=== PATIENT | female | born 1950 | race Hispanic/Latino ===

== ENCOUNTER → 2018-06-10 | Outpatient (CLI) | payer OTHER ==
[~2018-06-10] MED LIST: CLON2TAB11 PO; ESTR42.53 VG; SOLI5 PO
== END | disposition home or self-care (01) ==
LOC: RAH 14:34
PROVIDERS: ATTEND Family Medicine
DX: N28.1 Cyst of kidney, acquired (principal)
CPT/HCPCS: 76770

== ENCOUNTER → 2019-03-02 | Outpatient (CLI) | payer OTHER | END | disposition home or self-care (01) | LOC: RAH 08:13 | PROVIDERS: ATTEND Family Medicine | DX: R10.9 Unspecified abdominal pain (principal); R11.0 Nausea; Z90.49 Acquired absence of other specified parts of digestive tract | CPT/HCPCS: 76705 ==

== ENCOUNTER → 2019-05-24 | Outpatient (CLI) | payer OTHER | END | disposition home or self-care (01) | LOC: RAH 10:18 | PROVIDERS: ATTEND Family Medicine | DX: K31.84 Gastroparesis (principal) | CPT/HCPCS: 78264; A9541 ==

== ENCOUNTER 2019-12-25 20:13 | Emergency (ER) | payer OTHER ==
[2019-12-25] MEDS ORDERED: ONDANSETRON HCL 4 MG/2 ML VIAL ONE (20:53)
[2019-12-25] MEDS ORDERED: HALOPERIDOL LACTATE 5 MG/ML VIAL ONE (20:54)
[2019-12-25 20:58] LABS: BASOPHILS % (AUTO) 0.7 % (0.0-5.0); EOSINOPHILS % (AUTO) 3.2 % (0.0-8.0); HEMATOCRIT 36.9 % (36-48); LYMPHOCYTES % (AUTO) 36.5 % (21.0-51.0); MEAN CORPUSCULAR HGB CONC 33.6 g/dL (32.0-36.0); MEAN CORPUSCULAR VOLUME 92.3 fL (79-99); MONOCYTES % (AUTO) 9.6 % (3.0-13.0); NEUTROPHILS % (AUTO) 49.7 % (40.0-77.0); PLATELET COUNT (AUTO) 252 K/uL (130-400); RED CELL DISTRIBUTION WIDTH 12.7 % (11.0-15.5); WHITE BLOOD COUNT (AUTO) 6.9 K/uL (4.8-10.8)
[2019-12-25 21:02] LABS: APPEARANCE,URINE Cloudy (CLEAR); BILIRUBIN,URINE Negative (NEGATIVE); COLOR,URINE Yellow (YELLOW); GLUCOSE, URINE (UA) Negative (NEGATIVE); KETONES,URINE Negative (NEGATIVE); LEUKOCYTE ESTERASE ,URINE Large (NEGATIVE); NITRATE,URINE Negative (NEGATIVE); OCCULT BLOOD,URINE Trace (NEGATIVE); PROTEIN,URINE POS 1+ mg/dL (NEGATIVE)
[2019-12-25 21:11] LABS: CREATININE 1.1 mg/dL (0.5-1.5); POTASSIUM 3.5 mmol/L (3.5-5.1)
[2019-12-25 21:15] LABS: ALBUMIN 3.9 g/dL (3.5-5.0); BILIRUBIN,DIRECT 0.1 mg/dL (0.0-0.3); BILIRUBIN,TOTAL 0.2 mg/dL (0.2-1.0); TOTAL PROTEIN, SERUM 7.7 g/dL (6.0-8.3)
[2019-12-25 21:39] LABS: BACTERIA,URINE Few /HPF (None Seen); MUCUS,URINE Rare LPF (None Seen); SQUAMOUS EPITHELIAL CELL,UR Moderate /HPF (0-2)
== END 2019-12-25 21:59 | disposition home or self-care (01) ==
LOC: EDH 20:13
DX: N39.0 Urinary tract infection, site not specified (principal); R10.11 Right upper quadrant pain; I10 Essential (primary) hypertension; Z90.49 Acquired absence of other specified parts of digestive tract; Z90.710 Acquired absence of both cervix and uterus
CPT/HCPCS: 36415; 74176; 80048; 80076; 81001; 82550; 83690; 84484; 85025; 87088; 93005; 96374; 96375; 99285; J1630; J2405

== ENCOUNTER → 2020-07-09 | Outpatient (CLI) | payer OTHER | END | disposition home or self-care (01) | LOC: RAH 09:05 | PROVIDERS: ATTEND Family Medicine | DX: R10.11 Right upper quadrant pain (principal); Z90.49 Acquired absence of other specified parts of digestive tract | CPT/HCPCS: 76700 ==

== ENCOUNTER 2021-01-23 14:40 | Emergency (ER) | payer OTHER ==
[~2021-01-23] VITALS: Ht 157.5 cm; Wt 61.7 kg
[2021-01-23 14:46] VITALS: BP 114/63
[2021-01-23] MEDS ORDERED: HYDROCODONE/ACETAMINOPHEN 5/325 MG TAB PO ONE (15:30)
[2021-01-23] MEDS ORDERED: CYCLOBENZAPRINE HCL 10 MG TABLET PO ONE (15:30)
[2021-01-23] MEDS ORDERED: KETOROLAC 30MG VIAL (30MG/ML) IM ONE (15:30)
[2021-01-23 15:33] LABS: BASOPHILS % (AUTO) 0.4 % (0.0-5.0); EOSINOPHILS % (AUTO) 1.7 % (0.0-8.0); HEMATOCRIT 33.7 % (36-48); LYMPHOCYTES % (AUTO) 25.4 % (21.0-51.0); MEAN CORPUSCULAR HEMOGLOBIN 31.6 pg (27.0-33.0); MEAN CORPUSCULAR HGB CONC 33.2 g/dL (32.0-36.0); MEAN CORPUSCULAR VOLUME 95.2 fL (79-99); MONOCYTES % (AUTO) 8.5 % (3.0-13.0); NEUTROPHILS % (AUTO) 63.7 % (40.0-77.0); PLATELET COUNT (AUTO) 256 K/uL (130-400); RED BLOOD CELL COUNT(AUTO) 3.54 MIL/uL (4.00-5.50); RED CELL DISTRIBUTION WIDTH 13.1 % (11.0-15.5); WHITE BLOOD COUNT (AUTO) 7.2 K/uL (4.8-10.8)
[2021-01-23 15:43] LABS: POTASSIUM 3.5 mmol/L (3.5-5.1)
[2021-01-23 15:48] VITALS: BP 133/82
[2021-01-23 15:53] LABS: ALBUMIN 3.6 g/dL (3.5-5.0); BILIRUBIN,TOTAL 0.2 mg/dL (0.2-1.0); TOTAL PROTEIN, SERUM 7.4 g/dL (6.0-8.3)
[2021-01-23 16:56] VITALS: BP 128/64
[2021-01-23] MEDS ORDERED: NAPR-1180 PO (17:16)
[2021-01-23] MEDS ORDERED: CYCL10 PO (17:16)
== END 2021-01-23 17:24 | disposition home or self-care (01) ==
LOC: EDH 14:50
DX: M94.0 Chondrocostal junction syndrome [Tietze] (principal); R07.89 Other chest pain; I10 Essential (primary) hypertension; E11.9 Type 2 diabetes mellitus without complications; F41.9 Anxiety disorder, unspecified; Z90.49 Acquired absence of other specified parts of digestive tract; Z90.710 Acquired absence of both cervix and uterus; Z79.899 Other long term (current) drug therapy
CPT/HCPCS: 36415; 71045; 80053; 82550; 84484; 85025; 93005; 96372; 99285; J1885

== ENCOUNTER 2021-05-13 09:58 | Emergency (ER) | payer OTHER ==
[~2021-05-13] VITALS: Ht 157.5 cm; Wt 60.8 kg
[~2021-05-13 09:58] MED LIST changes: +CYCL10 PO; +NAPR-1180 PO
[2021-05-13 10:22] LABS: BASOPHILS % (AUTO) 0.6 % (0.0-5.0); EOSINOPHILS % (AUTO) 2.5 % (0.0-8.0); HEMATOCRIT 37.1 % (36-48); LYMPHOCYTES % (AUTO) 33.5 % (21.0-51.0); MEAN CORPUSCULAR HEMOGLOBIN 30.5 pg (27.0-33.0); MEAN CORPUSCULAR HGB CONC 32.3 g/dL (32.0-36.0); MEAN CORPUSCULAR VOLUME 94.4 fL (79-99); MONOCYTES % (AUTO) 9.1 % (3.0-13.0); NEUTROPHILS % (AUTO) 54.1 % (40.0-77.0); PLATELET COUNT (AUTO) 253 K/uL (130-400); RED BLOOD CELL COUNT(AUTO) 3.93 MIL/uL (4.00-5.50); RED CELL DISTRIBUTION WIDTH 13.2 % (11.0-15.5); WHITE BLOOD COUNT (AUTO) 4.9 K/uL (4.8-10.8)
[2021-05-13 10:24] LABS: APPEARANCE,URINE Cloudy (CLEAR); BILIRUBIN,URINE Negative (NEGATIVE); COLOR,URINE Yellow (YELLOW); GLUCOSE, URINE (UA) Negative (NEGATIVE); KETONES,URINE Trace mg/dL (NEGATIVE); LEUKOCYTE ESTERASE ,URINE Moderate (NEGATIVE); NITRATE,URINE Negative (NEGATIVE); OCCULT BLOOD,URINE Negative (NEGATIVE); PROTEIN,URINE Negative (NEGATIVE); UROBILINOGEN,URINE 0.2 mg/dL (0.2-1.0)
[2021-05-13 10:31] LABS: AMPHET/METH SCREEN,URINE NEGATIVE (NEGATIVE); BARBITURATE SCREEN, URINE NEGATIVE (NEGATIVE); BENZODIAZEPINES SCREEN,URINE NEGATIVE (NEGATIVE); CANNABINOID SCREEN,URINE NEGATIVE (NEGATIVE); COCAINE SCREEN,URINE NEGATIVE (NEGATIVE); OPIATE SCREEN,URINE NEGATIVE (NEGATIVE); PHENCYCLIDINE SCREEN,URINE NEGATIVE (NEGATIVE)
[2021-05-13 10:33] LABS: CREATININE 1.3 mg/dL (0.5-1.5)
[2021-05-13 10:37] LABS: ALBUMIN 3.9 g/dL (3.5-5.0); BILIRUBIN,TOTAL 0.5 mg/dL (0.2-1.0); TOTAL PROTEIN, SERUM 7.9 g/dL (6.0-8.3)
[2021-05-13 10:59] LABS: BACTERIA,URINE Rare /HPF (None Seen); RBC,URINE 0-1 /HPF (0-1); SQUAMOUS EPITHELIAL CELL,UR Few /HPF (0-2)
[2021-05-13] MEDS ORDERED: CEFTRIAXONE 1G VIAL IVP ONE (12:00)
[2021-05-13] MEDS ORDERED: HYDROCODONE/ACETAMINOPHEN 5/325 MG TAB PO ONE (13:00)
[2021-05-13] MEDS ORDERED: FAMO-136 PO (14:48)
[2021-05-13 15:18] VITALS: BP 120/78
== END 2021-05-13 15:19 | disposition home or self-care (01) ==
LOC: EDH 09:58
DX: K29.70 Gastritis, unspecified, without bleeding (principal); I10 Essential (primary) hypertension; Z79.1 Long term (current) use of non-steroidal anti-inflammatories (NSAID); Z90.49 Acquired absence of other specified parts of digestive tract
CPT/HCPCS: 36415; 74176; 80053; 80305; 81001; 82150; 83690; 84484; 85025; 87088; 96374; 99284; J0696

== ENCOUNTER → 2022-09-22 | Outpatient (CLI) | payer MEDICARE ==
[~2022-09-22] MED LIST changes: -CYCL10 PO; +CYCL10TA16 PO; +FAMO-136 PO
[2022-09-22 10:31] LABS: BASOPHILS % (AUTO) 0.5 % (0.0-5.0); EOSINOPHILS % (AUTO) 1.6 % (0.0-8.0); HEMATOCRIT 37.5 % (36-48); LYMPHOCYTES % (AUTO) 14.4 % (21.0-51.0); MEAN CORPUSCULAR HEMOGLOBIN 30.1 pg (27.0-33.0); MEAN CORPUSCULAR HGB CONC 32.3 g/dL (32.0-36.0); MEAN CORPUSCULAR VOLUME 93.3 fL (79-99); MONOCYTES % (AUTO) 8.1 % (3.0-13.0); PLATELET COUNT (AUTO) 242 K/uL (130-400); RED BLOOD CELL COUNT(AUTO) 4.02 MIL/uL (4.00-5.50); WHITE BLOOD COUNT (AUTO) 7.4 K/uL (4.8-10.8)
[2022-09-22 10:46] LABS: CREATININE 1.4 mg/dL (0.5-1.5); POTASSIUM 3.6 mmol/L (3.5-5.1)
== END | disposition home or self-care (01) ==
LOC: LAB 09:51
PROVIDERS: ATTEND Urology
DX: R31.29 Other microscopic hematuria (principal)
CPT/HCPCS: 36415; 80048; 85025

== ENCOUNTER → 2022-09-26 | Outpatient (CLI) | payer MEDICARE ==
[~2022-09-26] MED LIST changes: +IOHEXOL-350 50ML VIAL IV ONE
== END | disposition home or self-care (01) ==
LOC: RAH 09:29
PROVIDERS: ATTEND Urology
DX: R31.29 Other microscopic hematuria (principal)
CPT/HCPCS: 74178; Q9967

== ENCOUNTER → 2023-05-18 | Outpatient (CLI) | payer MEDICARE ==
[~2023-05-18] MED LIST changes: +CLON0.5T4 PO; -CLON2TAB11 PO; -CYCL10TA16 PO; +DULO30CA2 PO; -ESTR42.53 VG; -FAMO-136 PO; -IOHEXOL-350 50ML VIAL IV ONE; +LISI40TA9 PO; +MIRA50TA PO; -NAPR-1180 PO; +NAPR-1196 PO; +OMEP40CA21 PO; -SOLI5 PO; +VENL-63 PO
== END | disposition home or self-care (01) ==
LOC: RAH 09:19
PROVIDERS: ATTEND Internal Medicine Gastroenterology
DX: N28.1 Cyst of kidney, acquired (principal); R10.84 Generalized abdominal pain; R93.2 Abnormal findings on diagnostic imaging of liver and biliary tract
CPT/HCPCS: 76700

== ENCOUNTER → 2023-05-26 | Outpatient (CLI) | payer MEDICARE ==
[2023-05-26 15:21] LABS: CREATININE 1.5 mg/dL (0.5-1.5); THYROID STIMULATING HORMONE 1.62 uIU/mL (0.36-3.74)
== END | disposition home or self-care (01) ==
LOC: LAB 13:48
PROVIDERS: ATTEND Internal Medicine Gastroenterology
DX: R10.10 Upper abdominal pain, unspecified (principal); R63.4 Abnormal weight loss; K31.84 Gastroparesis; R93.2 Abnormal findings on diagnostic imaging of liver and biliary tract; R11.0 Nausea
CPT/HCPCS: 36415; 82565; 84443; 84520

== ENCOUNTER → 2023-07-01 | Outpatient (CLI) | payer MEDICARE ==
[2023-07-01 10:22] LABS: THYROID STIMULATING HORMONE 1.6 uIU/mL (0.36-3.74)
== END | disposition home or self-care (01) ==
LOC: LAB 08:51
PROVIDERS: ATTEND Internal Medicine Gastroenterology
DX: R63.4 Abnormal weight loss (principal); R10.10 Upper abdominal pain, unspecified; K31.84 Gastroparesis; R11.0 Nausea; R93.2 Abnormal findings on diagnostic imaging of liver and biliary tract
CPT/HCPCS: 36415; 82565; 84443; 84520

== ENCOUNTER → 2023-07-02 | Outpatient (CLI) | payer MEDICARE ==
[~2023-07-02] MED LIST changes: +IOHEXOL 350 MG/ML 100ML INFUS..BTL IV ONE
== END | disposition home or self-care (01) ==
LOC: CANPRECLI → RAH 10:14
PROVIDERS: ATTEND Internal Medicine Gastroenterology
DX: N28.1 Cyst of kidney, acquired (principal); R10.10 Upper abdominal pain, unspecified; R11.0 Nausea; R63.4 Abnormal weight loss; R93.2 Abnormal findings on diagnostic imaging of liver and biliary tract; Z90.49 Acquired absence of other specified parts of digestive tract
CPT/HCPCS: 74178; Q9967

== ENCOUNTER 2023-09-18 15:23 | Emergency (ER) | payer MEDICARE ==
[~2023-09-18] VITALS: Ht 157.5 cm; Wt 54.0 kg
[~2023-09-18 15:23] MED LIST changes: +ASPI-1197 PO; +ATOR40TA69 PO; -DULO30CA2 PO; +DULO30CA52 PO; -IOHEXOL 350 MG/ML 100ML INFUS..BTL IV ONE; -LISI40TA9 PO; +SUCR1TAB PO; +VIBE75TA PO
[2023-09-18] MEDS: HYDROCODONE/ACETAMINOPHEN 5/325 MG TAB PO ONE (18:52)
[2023-09-18] MEDS: KETOROLAC 60 MG VIAL (30MG/ML) IM ONE (18:52)
[2023-09-18 19:20] VITALS: BP 115/76; PULSE 61; RESP 16; O2SAT 100
[2023-09-18] MEDS ORDERED: LIDO1ADH71 TP (19:38)
[2023-09-18] MEDS ORDERED: IBUP-2070 PO (19:38)
[2023-09-18] MEDS ORDERED: ACET-2079 PO (19:38)
== END 2023-09-18 20:11 | disposition home or self-care (01) ==
LOC: EDH 15:23
DX: S83.92XA Sprain of unspecified site of left knee, initial encounter (principal); F32.A Depression, unspecified; I10 Essential (primary) hypertension; K21.9 Gastro-esophageal reflux disease without esophagitis; K31.84 Gastroparesis; Z59.00 Homelessness unspecified; Z59.7 Insufficient social insurance and welfare support; Z79.82 Long term (current) use of aspirin; Z79.899 Other long term (current) drug therapy; Z83.3 Family history of diabetes mellitus; Z90.49 Acquired absence of other specified parts of digestive tract; Z90.710 Acquired absence of both cervix and uterus; X58.XXXA Exposure to other specified factors, initial encounter; Y93.01 Activity, walking, marching and hiking; Y92.89 Other specified places as the place of occurrence of the external cause; Y99.8 Other external cause status
CPT/HCPCS: 99284; 29505; 73562; 96372; J1885

== ENCOUNTER 2023-11-04 13:23 | Emergency (ER) | payer OTHER ==
[~2023-11-04] VITALS: Ht 154.9 cm; Wt 53.5 kg
[~2023-11-04 13:23] MED LIST changes: +ACET-2079 PO; +IBUP-2070 PO; +LIDO1ADH71 TP
[2023-11-04 14:41] VITALS: BP 126/63; PULSE 83; RESP 16; O2SAT 99
[2023-11-04 15:28] LABS: BASOPHILS # (AUTO) 0.04 K/uL (0.00-0.20); BASOPHILS % (AUTO) 0.5 % (0.0-5.0); EOSINOPHILS % (AUTO) 2.3 % (0.0-8.0); HEMATOCRIT 36.8 % (36-48); IMMATURE GRANULOCYTE ABSOLUTE 0.02 K/uL (0-1); LYMPHOCYTES # (AUTO) 1.7 K/uL (1.0-4.8); LYMPHOCYTES % (AUTO) 19.3 % (21.0-51.0); MEAN CORPUSCULAR HEMOGLOBIN 30.4 pg (27.0-33.0); MEAN CORPUSCULAR HGB CONC 32.3 g/dL (32.0-36.0); MEAN CORPUSCULAR VOLUME 94.1 fL (79-99); MONOCYTES # (AUTO) 0.7 K/uL (0.1-1.0); MONOCYTES % (AUTO) 7.7 % (3.0-13.0); PLATELET COUNT (AUTO) 263 K/uL (130-400); RED BLOOD CELL COUNT(AUTO) 3.91 MIL/uL (4.00-5.50); RED CELL DISTRIBUTION WIDTH 14.4 % (11.0-15.5); WHITE BLOOD COUNT (AUTO) 8.5 K/uL (4.8-10.8)
[2023-11-04 15:33] LABS: APPEARANCE,URINE CLOUDY (CLEAR); BILIRUBIN,URINE NEGATIVE (NEGATIVE); COLOR,URINE LIGHT-YELLOW (YELLOW); GLUCOSE, URINE (UA) NEGATIVE (NEGATIVE); KETONES,URINE NEGATIVE (NEGATIVE); LEUKOCYTE ESTERASE ,URINE 500 Leu/uL (NEGATIVE); NITRATE,URINE NEGATIVE (NEGATIVE); OCCULT BLOOD,URINE SMALL (NEGATIVE); PH,URINE 5.5 (5.0-8.0); PROTEIN,URINE 10 mg/dL (NEGATIVE); UROBILINOGEN,URINE 0.2 mg/dL (0.2-1.0)
[2023-11-04 15:34] LABS: ADD UA MICROSCOPIC YES
[2023-11-04 15:37] LABS: MUCUS,URINE RARE LPF (None Seen); SQUAMOUS EPITHELIAL CELL,UR MOD /HPF (0-2); WBC,URINE 26-50 /HPF (0-1)
[2023-11-04 15:39] LABS: CREATININE 1.1 mg/dL (0.5-1.0); POTASSIUM 3.5 mmol/L (3.5-5.1)
[2023-11-04 15:43] LABS: ALBUMIN 3.7 g/dL (3.5-5.0); BILIRUBIN,TOTAL 0.4 mg/dL (0.2-1.0); TOTAL PROTEIN, SERUM 7.7 g/dL (6.0-8.3)
[2023-11-04] MEDS ORDERED: AMOX/CLAV 875/125MG TAB PO ONE (18:00)
[2023-11-04] MEDS ORDERED: ACETAMINOPHEN 500 MG TABLET PO ONE (18:00)
[2023-11-04] MEDS: FAMOTIDINE 20MG VIAL IV ONE (18:24)
[2023-11-04] MEDS: 0.9%NACL 1000ML 1,000 ML IV ONE (18:24)
[2023-11-04] MEDS: MORPHINE 2 MG SYG IVP ONE (18:24)
[2023-11-04] MEDS: ONDANSETRON 4MG INJ IVP ONE (18:24)
[2023-11-04] MEDS ORDERED: IOHEXOL-350 75 ML VIAL IV ONE (20:02)
[2023-11-04] MEDS ORDERED: DICY20TA2 PO (21:44)
[2023-11-04] MEDS: CEFTRIAXONE 1G VIAL IV ONE (21:53)
[2023-11-04] MEDS: KETOROLAC 15MG/ML VIAL (15MG/ML) IV ONE (21:53)
== END 2023-11-04 22:31 | disposition home or self-care (01) ==
LOC: EDH 13:23
DX: G89.29 Other chronic pain (principal); R10.31 Right lower quadrant pain; E86.0 Dehydration; F32.A Depression, unspecified; I10 Essential (primary) hypertension; K21.9 Gastro-esophageal reflux disease without esophagitis; Z79.82 Long term (current) use of aspirin; Z79.899 Other long term (current) drug therapy; Z90.49 Acquired absence of other specified parts of digestive tract; Z90.710 Acquired absence of both cervix and uterus
CPT/HCPCS: 99285; 74177; 96374; 96375; 71045; 80053; 83690; 85025; 87088; 81001; 36415; 93005; J3490; J2270; J7030; J0696; J2405; J1885; Q9967

== ENCOUNTER → 2023-11-06 | Outpatient (CLI) | payer OTHER ==
[~2023-11-06] MED LIST changes: +DICY20TA2 PO
== END | disposition home or self-care (01) ==
LOC: RAH 08:44
PROVIDERS: ATTEND Surgery
DX: K21.9 Gastro-esophageal reflux disease without esophagitis (principal); K57.10 Diverticulosis of small intestine without perforation or abscess without bleeding; R10.13 Epigastric pain
CPT/HCPCS: 74240

== ENCOUNTER → 2023-11-16 | Outpatient (CLI) | payer OTHER | END | disposition home or self-care (01) | LOC: RAH 10:27 | PROVIDERS: ATTEND Surgery | DX: K30 Functional dyspepsia (principal) | CPT/HCPCS: 78264; A9541 ==

== ENCOUNTER 2024-02-15 04:46 | Emergency (ER) | payer OTHER ==
[~2024-02-15] VITALS: Ht 157.5 cm; Wt 47.2 kg
[~2024-02-15 04:46] MED LIST changes: -ACET-2079 PO; -ASPI-1197 PO; -CLON0.5T4 PO; +DOCU100C33 PO; -DULO30CA52 PO; +FAMO20TA8 PO; -IBUP-2070 PO; -LIDO1ADH71 TP; +LISI10TA24 PO; -MIRA50TA PO; -NAPR-1196 PO; -OMEP40CA21 PO; +ONDA-243 PO; +PANT40TA54 PO; -SUCR1TAB PO; -VENL-63 PO; +ZOLP5TAB8 PO
[2024-02-15 05:20] LABS: BASOPHILS # (AUTO) 0.04 K/uL (0.00-0.20); BASOPHILS % (AUTO) 0.6 % (0.0-5.0); EOSINOPHILS # (AUTO) 0.13 K/uL (0.00-0.70); EOSINOPHILS % (AUTO) 1.9 % (0.0-8.0); HEMATOCRIT 34.7 % (36-48); IMMATURE GRANULOCYTE ABSOLUTE 0.02 K/uL (0-1); LYMPHOCYTES # (AUTO) 1.2 K/uL (1.0-4.8); LYMPHOCYTES % (AUTO) 18.4 % (21.0-51.0); MEAN CORPUSCULAR HEMOGLOBIN 30.9 pg (27.0-33.0); MEAN CORPUSCULAR HGB CONC 31.7 g/dL (32.0-36.0); MEAN CORPUSCULAR VOLUME 97.5 fL (79-99); MONOCYTES # (AUTO) 0.5 K/uL (0.1-1.0); NEUTROPHILS # (AUTO) 4.8 K/uL (1.8-7.7); NEUTROPHILS % (AUTO) 71.8 % (40.0-77.0); PLATELET COUNT (AUTO) 222 K/uL (130-400); RED BLOOD CELL COUNT(AUTO) 3.56 MIL/uL (4.00-5.50); RED CELL DISTRIBUTION WIDTH 13.3 % (11.0-15.5); WHITE BLOOD COUNT (AUTO) 6.7 K/uL (4.8-10.8)
[2024-02-15] MEDS: LACTATED RINGERS 1000ML 1,002 ML IV ONE (05:40)
[2024-02-15 05:51] LABS: ALBUMIN 3.6 g/dL (3.5-5.0); BILIRUBIN,TOTAL 0.6 mg/dL (0.2-1.0); CREATININE 1.3 mg/dL (0.5-1.0); POTASSIUM 3.5 mmol/L (3.5-5.1); TOTAL PROTEIN, SERUM 7.1 g/dL (6.0-8.3)
[2024-02-15] MEDS: MORPHINE 4 MG SYG IVP ONE (05:59)
[2024-02-15] MEDS: ONDANSETRON 4MG INJ IVP ONE (05:59)
[2024-02-15] MEDS ORDERED: IOHEXOL-350 75 ML VIAL IV ONE (06:01)
[2024-02-15 06:39] LABS: APPEARANCE,URINE CLEAR (CLEAR); BILIRUBIN,URINE NEGATIVE (NEGATIVE); COLOR,URINE LIGHT-YELLOW (YELLOW); GLUCOSE, URINE (UA) NEGATIVE (NEGATIVE); KETONES,URINE NEGATIVE (NEGATIVE); LEUKOCYTE ESTERASE ,URINE 75 Leu/uL (NEGATIVE); NITRATE,URINE NEGATIVE (NEGATIVE); OCCULT BLOOD,URINE NEGATIVE (NEGATIVE); PROTEIN,URINE NEGATIVE (NEGATIVE); UROBILINOGEN,URINE 0.2 mg/dL (0.2-1.0)
[2024-02-15 06:52] LABS: ADD UA MICROSCOPIC YES
[2024-02-15 06:56] LABS: BACTERIA,URINE RARE /HPF (None Seen); MUCUS,URINE RARE LPF (None Seen); SQUAMOUS EPITHELIAL CELL,UR MOD /HPF (0-2)
[2024-02-15] MEDS ORDERED: METR-172 PO (08:51)
[2024-02-15 09:07] VITALS: BP 124/71; PULSE 67; RESP 17; O2SAT 99
== END 2024-02-15 09:11 | disposition home or self-care (01) ==
LOC: EDH 04:46
DX: K52.9 Noninfective gastroenteritis and colitis, unspecified (principal); I10 Essential (primary) hypertension; E78.00 Pure hypercholesterolemia, unspecified; K21.9 Gastro-esophageal reflux disease without esophagitis; F32.A Depression, unspecified; F41.9 Anxiety disorder, unspecified; Z98.890 Other specified postprocedural states; Z79.899 Other long term (current) drug therapy; Z90.49 Acquired absence of other specified parts of digestive tract; Z90.710 Acquired absence of both cervix and uterus
CPT/HCPCS: 99285; 74177; 96374; 96361; 96375; 84484; 80053; 83690; 85025; 87086 ×2; 87186; 81001; 36415; J7120; J2405; J2270; Q9967

== ENCOUNTER → 2024-03-31 | Outpatient (CLI) | payer OTHER ==
[~2024-03-31] MED LIST changes: -DICY20TA2 PO; +DICY20TA3 PO; +LACT10SO95 PO; -ONDA-243 PO; +PROM25TA7 PO; +TRAM-543 PO; -VIBE75TA PO; -ZOLP5TAB8 PO
[2024-03-31 12:45] LABS: ALBUMIN 3.7 g/dL (3.5-5.0); BILIRUBIN,TOTAL 0.4 mg/dL (0.2-1.0); CREATININE 1.3 mg/dL (0.5-1.0); POTASSIUM 4.4 mmol/L (3.5-5.1)
== END | disposition home or self-care (01) ==
LOC: LAB 11:44
PROVIDERS: ATTEND Internal Medicine Gastroenterology
DX: E44.0 Moderate protein-calorie malnutrition (principal); D64.9 Anemia, unspecified
CPT/HCPCS: 36415; 80053

== ENCOUNTER 2024-04-27 03:01 | Observation (INO) | payer OTHER ==
[~2024-04-27] VITALS: Ht 157.5 cm; Wt 49.1 kg
[2024-04-27] MEDS: ondanSETRON 4MG INJ IVP ONE (03:52)
[2024-04-27] MEDS: morPHINE 4 MG SYG IVP ONE (03:52)
[2024-04-27 04:16] LABS: BASOPHILS # (AUTO) 0.05 K/uL (0.00-0.20); BASOPHILS % (AUTO) 0.7 % (0.0-5.0); EOSINOPHILS # (AUTO) 0.26 K/uL (0.00-0.70); EOSINOPHILS % (AUTO) 3.8 % (0.0-8.0); HEMATOCRIT 32.2 % (36-48); IMMATURE GRANULOCYTE ABSOLUTE 0.02 K/uL (0-1); LYMPHOCYTES % (AUTO) 15.2 % (21.0-51.0); MEAN CORPUSCULAR HEMOGLOBIN 31.8 pg (27.0-33.0); MEAN CORPUSCULAR HGB CONC 32.6 g/dL (32.0-36.0); MEAN CORPUSCULAR VOLUME 97.6 fL (79-99); MONOCYTES # (AUTO) 0.7 K/uL (0.1-1.0); MONOCYTES % (AUTO) 10.6 % (3.0-13.0); NEUTROPHILS # (AUTO) 4.7 K/uL (1.8-7.7); NEUTROPHILS % (AUTO) 69.4 % (40.0-77.0); PLATELET COUNT (AUTO) 256 K/uL (130-400); RED CELL DISTRIBUTION WIDTH 14.1 % (11.0-15.5); WHITE BLOOD COUNT (AUTO) 6.8 K/uL (4.8-10.8)
[2024-04-27] MEDS: hydroMORPHone 0.5 MG SYG (0.5MG/0.5ML) IVP ONE ×2 (04:27→05:20)
[2024-04-27 04:31] LABS: CREATININE 1.1 mg/dL (0.5-1.0)
[2024-04-27 04:35] LABS: BILIRUBIN,TOTAL 0.2 mg/dL (0.2-1.0)
[2024-04-27] MEDS: ketOROlac 15MG/ML VIAL (15MG/ML) IV ONE (05:20)
[2024-04-27] MEDS: CLINDAMYCIN IVPB 600MG/50ML 50 ML IV SCH (05:55)
[2024-04-27] MEDS ORDERED: hydrALAZine 20MG/ML VIAL IV PRN (06:00)
[2024-04-27] MEDS ORDERED: LAbetaLOL 20MG SYG IV PRN (06:00)
[2024-04-27] MEDS: LACTATED RINGERS 1000ML 1,000 ML IV SCH (08:37)
[2024-04-27] MEDS: hydroMORPHone 1 MG INJ IVP PRN (11:26)
[2024-04-27] MEDS: morPHINE 2 MG SYG IVP PRN (13:04)
[2024-04-27] MEDS ORDERED: ATOR40TA71 PO (14:04)
[2024-04-27] MEDS ORDERED: OMEP40CA21 PO (14:05)
[2024-04-27] MEDS ORDERED: GABA-1405 PO (14:05)
[2024-04-27] MEDS ORDERED: PROM50TA3 PO (14:07)
[2024-04-27] MEDS ORDERED: PROMETHAZINE HCL 25 MG TABLET PO SCH (16:30)
[2024-04-27] MEDS: atorVAStatin 40 MG TABLET PO SCH (21:26)
[2024-04-27] MEDS: PANTOPrazole 40 MG/VIAL IVP SCH (21:26)
[2024-04-27] MEDS: MUPIROCIN OINTMENT 22 GM TUBE TP SCH (21:26)
[2024-04-27] MEDS: GABAPENTIN 300 MG CAPSULE PO SCH (21:26)
[2024-04-28 01:00] VITALS: BP 131/100; PULSE 73; RESP 20; TEMP 98
[2024-04-28 04:00] VITALS: BP_SYST 102; BP_SYST 129; BP_DIAS 60; BP_DIAS 81; PULSE 67; RESP 20; TEMP 98
[2024-04-28 06:45] LABS: BASOPHILS # (AUTO) 0.05 K/uL (0.00-0.20); EOSINOPHILS % (AUTO) 4.1 % (0.0-8.0); HEMATOCRIT 32.5 % (36-48); IMMATURE GRANULOCYTE ABSOLUTE 0.01 K/uL (0-1); LYMPHOCYTES # (AUTO) 1.4 K/uL (1.0-4.8); LYMPHOCYTES % (AUTO) 29.2 % (21.0-51.0); MEAN CORPUSCULAR HEMOGLOBIN 31.1 pg (27.0-33.0); MEAN CORPUSCULAR HGB CONC 31.4 g/dL (32.0-36.0); MEAN CORPUSCULAR VOLUME 99.1 fL (79-99); MONOCYTES # (AUTO) 0.6 K/uL (0.1-1.0); MONOCYTES % (AUTO) 11.3 % (3.0-13.0); NEUTROPHILS # (AUTO) 2.6 K/uL (1.8-7.7); NEUTROPHILS % (AUTO) 54.2 % (40.0-77.0); PLATELET COUNT (AUTO) 258 K/uL (130-400); RED BLOOD CELL COUNT(AUTO) 3.28 MIL/uL (4.00-5.50); RED CELL DISTRIBUTION WIDTH 13.9 % (11.0-15.5); WHITE BLOOD COUNT (AUTO) 4.9 K/uL (4.8-10.8)
[2024-04-28 07:08] LABS: PROTHROMBIN TIME 10.8 SEC (9.6-11.6)
[2024-04-28 07:09] LABS: PARTIAL THROMBOPLASTIN TIME 27.9 SEC (26.3-35.5)
[2024-04-28 08:00] VITALS: O2SAT 91
[2024-04-28 08:21] VITALS: BP 108/64; PULSE 72; RESP 18; TEMP 99.2
[2024-04-28] MEDS ORDERED: hydroMORPHone 0.5 MG SYG (0.5MG/0.5ML) IVP PRN (09:00)
[2024-04-28 09:49] LABS: ALBUMIN 3.2 g/dL (3.5-5.0); BILIRUBIN,TOTAL 0.4 mg/dL (0.2-1.0); CREATININE 0.9 mg/dL (0.5-1.0); MAGNESIUM 1.9 mg/dL (1.80-2.40); PHOSPHORUS 4.8 mg/dL (2.5-4.9); TOTAL PROTEIN, SERUM 6.7 g/dL (6.0-8.3)
[2024-04-28 11:37] VITALS: BP 107/65; PULSE 80; RESP 18; TEMP 99.4
[2024-04-28] MEDS ORDERED: PHARMACY COMMUNICATION 1 EACH EACH MISC SCH (14:00)
[2024-04-28] MEDS ORDERED: IOHEXOL-350 75 ML VIAL IV ONE (17:59)
== END 2024-04-28 18:00 | disposition home or self-care (01) ==
LOC: EDH 03:01 → EDHIP 05:57 → INTOOBSV 05:57 → OBSVTOIN 05:57 → 3AH 04-28 00:49
PROVIDERS: ADMIT Internal Medicine; ATTEND Internal Medicine
DX: T85.848A Pain due to other internal prosthetic devices, implants and grafts, initial encounter (principal); K31.84 Gastroparesis; I12.9 Hypertensive chronic kidney disease with stage 1 through stage 4 chronic kidney disease, or unspecified chronic kidney disease; N18.30 Chronic kidney disease, stage 3 unspecified; D63.1 Anemia in chronic kidney disease; R64 Cachexia; E78.00 Pure hypercholesterolemia, unspecified; R63.6 Underweight; K29.70 Gastritis, unspecified, without bleeding; K57.30 Diverticulosis of large intestine without perforation or abscess without bleeding; F41.9 Anxiety disorder, unspecified; L80 Vitiligo; I25.10 Atherosclerotic heart disease of native coronary artery without angina pectoris; K21.9 Gastro-esophageal reflux disease without esophagitis; F32.A Depression, unspecified; Z87.11 Personal history of peptic ulcer disease; Z79.899 Other long term (current) drug therapy; Z90.49 Acquired absence of other specified parts of digestive tract; Z90.710 Acquired absence of both cervix and uterus; Z68.1 Body mass index [BMI] 19.9 or less, adult; Z93.4 Other artificial openings of gastrointestinal tract status; Y83.3 Surgical operation with formation of external stoma as the cause of abnormal reaction of the patient, or of later complication, without mention of misadventure at the time of the procedure
CPT/HCPCS: 96365; 96376 ×2; 96361; 96366 ×2; 96375; 99285; 80053 ×2; 83690 ×2; 85025 ×2; 36415 ×2; 74177; 76705; 83735; 84100; 85610; 85730; G0378 ×2; J1170 ×6; J2270 ×3; J2405; J2470; J1885; J3490 ×4; Q9967

== ENCOUNTER 2024-09-14 07:47 | Observation (INO) | payer OTHER ==
[~2024-09-14] VITALS: Ht 157.5 cm; Wt 52.3 kg
[~2024-09-14 07:47] MED LIST changes: -ATOR40TA69 PO; -DICY20TA3 PO; -DOCU100C33 PO; +GABA-1555 PO; +LACT-441 PO; -LACT10SO95 PO; -LISI10TA24 PO; +MEGE400O39 PO; -PANT40TA54 PO; -PROM25TA7 PO; -TRAM-543 PO
--- NOTE | 2024-09-14 08:12 | ERN ---
General Chief Complaint: Numbness Stated Complaint: NUMBNESS Time Seen by MD: 07:50 History of Present Illness Initial Comments 73-year-old female who presents for right-sided facial numbness and right neck pain radiating down to the right arm beginning about 24 hours ago. She reports yesterday she had significant pain coming from the right side of her neck going into her right trapezius muscle. She also has a bit of a headache. He was sudden in onset after hearing a pop. She reports that throughout the day the pain has gotten better but now she feels a numbness to the right side of her face. She also reports feeling weaker in the right arm compared to the left. No other focal neurologic deficits. She does report that she had a spinal fusion a few years ago by Dr. Waller. No vision changes. No confusion. Symptoms have been present for over 24 hours. Allergies: Coded Allergies: No Known Drug Allergies (Verified Allergy, Unknown, 07/03/16) Home Meds Active Scripts Cefdinir (Cefdinir) 300 Mg Capsule, 1 CAP PO DAILY for 5 Days, #5 CAP 0 Refills Prov:REED RAMOS MD 09/15/24 Aspirin (ASPIRIN 81MG CHEW TAB) 81 Mg Tab.chew, 81 MG PO Q24H for 30 Days, #30 TAB.CHEW 1 Refill Prov:REED RAMOS MD 09/15/24 Reported Medications Gabapentin (Gabapentin) 400 Mg Capsule, 1 CAP PO TID PRN for PAIN for 30 Days, #90 CAP 0 Refills 09/15/24 Discontinued Reported Medications Lactulose (Lactulose) 10 Gram/15 Ml Solution, 30 ML PO DAILY 06/25/24 Gabapentin (Gabapentin) 800 Mg Tablet, 1 TAB PO TID 06/25/24 Megestrol Acetate (Megestrol Acetate Susp) 400 Mg/10 Ml (40 Mg/Ml) Susp, 1.5 ML PO BID 06/25/24 Famotidine (Famotidine) 20 Mg Tablet, 20 MG PO BID, TAB 01/05/24 Past Medical History Past Medical History: High Cholesterol, Hypertension, Other Medical History Other: GASTRPORESIS Past Surgical History: Appendectomy, Hysterectomy, Other, Bariatric Surgery Surgical History Other: PEG TUBE; RT KNEE SX; RT ROTATOR CUFF; NECK SX Family History Family History: DM, Negative Social History Social History: Negative Female( History) History: Not Applicable ROS Dictation CONSTITUTIONAL: No chills, no fever, no weakness, no diaphoresis, no malaise. HEAD/FACE: No signs of trauma. EENT: No eye pain, no blurred vision, no tearing, no double vision, no ear alexsander n, no ear discharge, no nose pain, no nasal congestion, no throat pain, no throat swelling, no mouth pain. RESPIRATORY: No cough, no orthopnea, no SOB, no stridor, no wheezing. CARDIOVASCULAR: No chest pain, no edema, no palpitations, no syncope. GASTROINTESTINAL/ABDOMINAL: No abdominal pain, no constipation, no diarrhea, no nausea, no vomiting. GENITOURINARY: No abnormal discharge, no dysuria, no frequent urination, no hematuria. No complaints of pain in the genitals. MUSCULOSKELETAL: No back pain, no gout, no joint pain, no joint swelling, no muscle pain, no muscle stiffness, no neck pain. INTEGUMENTARY: No change in color, no change in hair/nails, no dryness, no lesion, no lumps, no rash. NEUROLOGICAL/PSYCH: Right-sided headache, right-sided facial numbness HEMATOLOGIC/LYMPHATIC: Not anemic, no history of blood clots, no apparent bleeding, no bruising, glands not swollen. All Systems Negative, Except as Noted. Physical Exam Physical Exam Dictation VITAL SIGNS: Reviewed. GENERAL APPEARANCE: Alert, oriented x3, no acute distress HEAD AND FACE: Non-traumatic. EYES: PERRL, pink conjunctivas, eyelid no trauma, anterior chamber clear. EARS: Pinnas intact and no signs of trauma or erythema. Ear canals clear and no discharge. TMs no erythema. NOSE: No discharge, no bleeding. OROPHARYNX: Mouth normal, teeth no caries, tongue pink. Pharynx clear, no erythema. Tonsils no exudates, no abscesses noted. Mucous membrane moist. NECK: Supple, non-tender, no thyromegaly, no masses, no JVD, no bruits. BREAST: Deferred. CHEST: No tenderness, no crepitus, no paradoxical movement, no retractions. LUNGS: Clear, well-ventilated, symmetric, no rales, no wheezing, no rhonchi, no stridor, good breath sounds bilaterally. HEART: Regular rate, regular rhythm, no murmur, no gallops. VASCULAR: No peripheral edema. ABDOMEN: Soft, positive bowel sounds, nondistended, no guarding, nontender, no rebound, no masses no hepatomegaly, no splenomegaly, no Ovalle's sign, no herni as. RECTAL: Deferred. GENITAL: Deferred. NEUROLOGICAL: Cranial nerves are intact. Pain when moving her head to the right. Tenderness to the mid cervical spine paraspinal muscles, no bony tenderness. She does have 4/5 strength to the right arm compared to the left arm. No vision changes, STEPHY, EOMI. MUSCULOSKELETAL: Neck nontender, full range of motion, back nontender, full range of motion. EXTREMITIES: Nontender, full range of motion. SKIN: Color pink, dry, no turgor, no rash, no lacerations, no abrasions, no contusions. LYMPHATICS: Deferred. Results Laboratory and Microbiology Lab and Micro Result Laboratory Tests Test 09/14/24 08:18 White Blood Count 4.9 K/uL (4.8-10.8) Red Blood Count 3.63 MIL/uL (4.00-5.50) L Hemoglobin 11.3 g/dL (12.0-16.0) L Hematocrit 34.7 % (36-48) L Mean Corpuscular Volume 95.6 fL (79-99) Mean Corpuscular Hemoglobin 31.1 pg (27.0-33.0) Mean Corpuscular Hemoglobin Concent 32.6 g/dL (32.0-36.0) Red Cell Distribution Width 13.7 % (11.0-15.5) Platelet Count 250 K/uL (130-400) Mean Platelet Volume 9.4 fL (7.5-10.5) Immature Granulocyte % (Auto) 0.4 % (0-1) Neutrophils (%) (Auto) 57.8 % (40.0-77.0) Lymphocytes (%) (Auto) 25.5 % (21.0-51.0) Monocytes (%) (Auto) 11.4 % (3.0-13.0) Eosinophils (%) (Auto) 4.1 % (0.0-8.0) Basophils (%) (Auto) 0.8 % (0.0-5.0) Neutrophils # (Auto) 2.8 K/uL (1.8-7.7) Lymphocytes # (Auto) 1.3 K/uL (1.0-4.8) Monocytes # (Auto) 0.6 K/uL (0.1-1.0) Eosinophils # (Auto) 0.20 K/uL (0.00-0.70) Basophils # (Auto) 0.04 K/uL (0.00-0.20) Absolute Immature Granulocyte (auto 0.02 K/uL (0-1) Nucleated Red Blood Cells 0.0 % (0.0-0.19) Erythrocyte Sedimentation Rate 13 MM/HR (0-30) Prothrombin Time 10.6 SEC (9.6-11.6) Prothromb Time International Ratio 0.94 (0.85-1.15) Activated Partial Thromboplast Time 26.4 SEC (26.3-35.5) Sodium Level 140 mmol/L (136-145) Potassium Level 3.7 mmol/L (3.5-5.1) Chloride Level 106 mmol/L (101-111) Carbon Dioxide Level 27 mmol/L (21-32) Blood Urea Nitrogen 16 mg/dL (7-18) Creatinine 1.1 mg/dL (0.5-1.0) H Glomerular Filtration Rate Calc 53 mL/min (>90) Random Glucose 80 mg/dL (70-105) Hemoglobin A1c 5.9 % (4.0-6.0) Estimated Average Glucose (eAG) 123 mg/dL (70-126) Total Calcium 8.4 mg/dL (8.5-10.1) L Magnesium Level 2.00 mg/dL (1.80-2.40) Total Bilirubin 0.4 mg/dL (0.2-1.0) Direct Bilirubin 0.1 mg/dL (0.0-0.3) Aspartate Amino Transf (AST/SGOT) 24 U/L (10-37) Alanine Aminotransferase (ALT/SGPT) 18 U/L (12-78) Alkaline Phosphatase 72 U/L (50-136) Total Creatine Kinase 61 U/L (21-232) # Troponin I High Sensitivity < 4.0 ng/L (4-50) L C-Reactive Protein, Quantitative < 0.50 mg/L (0.5-3.0) L Total Protein 7.0 g/dL (6.0-8.3) Albumin 3.2 g/dL (3.5-5.0) L Triglycerides Level 93 mg/dL (30-200) Cholesterol Level 145 mg/dL (<200) # LDL Cholesterol 94 mg/dL (0-99) HDL Cholesterol 48 mg/dL (35-85) Procalcitonin < 0.05 ng/mL (0.05-0.5) L Thyroid Stimulating Hormone (TSH) 1.57 uIU/mL (0.36-3.74) # MDM CC: Neck pain and facial numbness Historian: Patient Comorbidities: Gastroparesis with a history of GJ tube placement, cervical spine surgery C4 the C6 by Dr. waller about 15 years ago. Limitations by social determinants of health: None Differential diagnosis: Stroke, cervical spine abnormality, other Symptom onset 5:00 a.m. on 09/13/2024, not a candidate for TNK. CT head (independently interpreted by me): No acute bleed Vital signs: Stable Labs (independently ordered and interpreted by me): Normal UA, normal CBC, chemistry panel is unremarkable. Troponin normal. Liver function normal. I suspect that the patient's complaint is likely cervical radiculopathy, it appears to be coming from the neck. That said she does not neurologic complaints, such tele neurology was consulted. He recommends admission for stroke workup. He says that if we get an MRI of the brain he also recommends giving an MRI of the cervical spine. If the MRI of the brain is unremarkable with a in his likely related to the spine in the patient can follow up with Neurosurgery as needed. Patient agrees with the plan for admission. Consultation: Hospitalist ED Course Orders Procedure Category Date Status Time Ct Head/Brain W/O CT 09/14/24 Resulted Contrast 08:06 Ct Cervical Spine W/O CT 09/14/24 Resulted Contrast 08:06 Cardiac Panel LAB 09/14/24 Complete 08:06 Cbc With Differential LAB 09/14/24 Complete 08:06 Basic Metabolic Panel LAB 09/14/24 Complete 08:06 Prothrombin Time With LAB 09/14/24 Complete INR 08:06 Partial LAB 09/14/24 Complete Thromboplastin Time 08:06 12 Lead Ekg Tracing- EKG 09/14/24 Resulted Technical 08:06 Ketorolac PHA 09/14/24 Complete Tromethamine 15mg/Ml 09:00 Morphine 4mg Syg PHA 09/14/24 Complete (Morphine 4mg Syg) 09:00 Vital Signs Date Time Temp Pulse Resp B/P (MAP) Pulse Ox O2 Delivery O2 Flow Rate FiO2 09/14/24 08:41 99.0 72 16 127/81 100 Room Air* 0 21 09/14/24 07:49 99.3 97 20 131/75 99 Room Air DX & DISP Disposition: Inpatient Departure Impression: Primary Impression: Numbness Additional Impression: Stroke-like symptoms Condition: Stable Scripts Cefdinir (Cefdinir) 300 Mg Capsule 1 CAP PO DAILY for 5 Days, #5 CAP 0 Refills Prov: REED RAMOS MD 09/15/24 Aspirin (ASPIRIN 81MG CHEW TAB) 81 Mg Tab.chew 81 MG PO Q24H for 30 Days, #30 TAB.CHEW 1 Refill Prov: REED RAMOS MD 09/15/24 Referrals: NORBERT MOREIRA DO (PCP) ESTHER GUERRERO DO Sep 14, 2024 08:11
[2024-09-14 08:35] LABS: BASOPHILS # (AUTO) 0.04 K/uL (0.00-0.20); BASOPHILS % (AUTO) 0.8 % (0.0-5.0); EOSINOPHILS % (AUTO) 4.1 % (0.0-8.0); HEMATOCRIT 34.7 % (36-48); IMMATURE GRANULOCYTE ABSOLUTE 0.02 K/uL (0-1); LYMPHOCYTES # (AUTO) 1.3 K/uL (1.0-4.8); LYMPHOCYTES % (AUTO) 25.5 % (21.0-51.0); MEAN CORPUSCULAR HEMOGLOBIN 31.1 pg (27.0-33.0); MEAN CORPUSCULAR HGB CONC 32.6 g/dL (32.0-36.0); MEAN CORPUSCULAR VOLUME 95.6 fL (79-99); MONOCYTES # (AUTO) 0.6 K/uL (0.1-1.0); MONOCYTES % (AUTO) 11.4 % (3.0-13.0); NEUTROPHILS # (AUTO) 2.8 K/uL (1.8-7.7); NEUTROPHILS % (AUTO) 57.8 % (40.0-77.0); PLATELET COUNT (AUTO) 250 K/uL (130-400); RED BLOOD CELL COUNT(AUTO) 3.63 MIL/uL (4.00-5.50); RED CELL DISTRIBUTION WIDTH 13.7 % (11.0-15.5); WHITE BLOOD COUNT (AUTO) 4.9 K/uL (4.8-10.8)
[2024-09-14 08:45] LABS: INR 0.94 (0.85-1.15); PROTHROMBIN TIME 10.6 SEC (9.6-11.6)
[2024-09-14 08:46] LABS: PARTIAL THROMBOPLASTIN TIME 26.4 SEC (26.3-35.5)
[2024-09-14 08:47] LABS: CARBON DIOXIDE 27 mmol/L (21-32); CHLORIDE 106 mmol/L (101-111); CREATININE 1.1 mg/dL (0.5-1.0); GLOMERULAR FILTR. RATE CALC 53 mL/min (>90); GLUCOSE,RANDOM 80 mg/dL (70-105); POTASSIUM 3.7 mmol/L (3.5-5.1); SODIUM SERUM 140 mmol/L (136-145); UREA NITROGEN, BLOOD 16 mg/dL (7-18)
[2024-09-14 08:53] LABS: CREATINE KINASE, TOTAL 61 U/L (21-232)
[2024-09-14] MEDS: morPHINE 4 MG SYG IVP ONE (09:00)
--- NOTE | 2024-09-14 09:13 | HMCIMG ---
CT HEAD/BRAIN W/O CONTRAST HISTORY: Right facial numbness COMPARISON: None TECHNIQUE: Multiple sequential axial images of the head were obtained from the base of the skull through vertex. Patient was not given contrast through intravenous route. FINDINGS: The ventricles and extraventricular CSF spaces are dilated consistent with cerebral atrophy. Nonspecific white matter changes seen. There is right basal ganglia lacunar infarct. There is no midline shift, mass effect or herniation. No acute intracranial bleed is seen. Visualized portion of the paranasal sinuses are grossly within normal limits. IMPRESSION: 1. No acute intracranial bleed is seen. 2. Atrophy with white matter changes. Right basal ganglia lacunar infarct. CT was performed with one or more following dose reduction techniques: automated exposure control, adjustment of the mA and kv according to patient's size, or use of a iterative reconstruction technique.
--- NOTE | 2024-09-14 09:14 | HMCIMG ---
CT CERVICAL SPINE W/O CONTRAST HISTORY: Right facial numbness COMPARISON: None TECHNIQUE: Multiple sequential axial images of the cervical spine were obtained including post processing sagittal and coronal reconstruction images. Patient was not given contrast through intravenous route. FINDINGS: There is reversal of normal lordotic lumbar curvature which may be related to muscle spasm or positioning. Orthopedic fixation plates and screws are seen traversing the C4, C5 and C6 levels. Central canal narrowing is seen is levels. There is straightening of normal lordotic cervical curvature which may be related to muscle spasm or positioning. There is no loss of vertebral height. Evaluation for disc and cord pathology is limited with CT study. No evidence of fracture or dislocation is seen. IMPRESSION: 1. No fracture is seen. Postop changes limiting evaluation. Degenerative changes with cervical spine spondylosis with central canal narrowing. CT was performed with one or more following dose reduction techniques: automated exposure control, adjustment of the mA and kv according to patient's size, or use of a iterative reconstruction technique.
[2024-09-14] MEDS: ketOROlac 15MG/ML VIAL (15MG/ML) IV ONE (09:15)
--- NOTE | 2024-09-14 09:26 | EKG ---
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
--- NOTE | 2024-09-14 09:27 | NUR ---
PER DR. GUERRERO TO CONSULT TELE NEURO FOR EVALUATION
--- NOTE | 2024-09-14 09:40 | CONS ---
CONSULTATION NOTE DATE OF CONSULTATION: 09/14/24 HISTORY OF PRESENT ILLNESS: [place] [facility] Note # Demographics Consult Type: General Neurology Patient Location: Emergency Room First Name: JOHNSON Yan Last Name: JACOB Date of : 1950 Age: 73 Gender: Female Facility: [facility] Time of Initial Page (Central Time): 09/14/2024 09:29 Time of Return Call (Central Time): 09/14/2024 09:29 # HPI History: Patient reported that yesterday morning around 5am having right neck pain behind ear to shoulder, along with right facial numbness. Last Known Normal: 09/12/24 evening per patient Duration: - constant - days Possible Thrombolytic candidate: - not on warfarin or NOACs - no intracranial hemorrhage history - no stroke in last 3 months # Scores Time of exam and NIHSS (Central Time): 09/14/2024 09:31 Level of Consciousness 1a: [0] = Alert; keenly responsive LOC Questions 1b: [0] = Answers both questions correctly LOC Commands 1c: [0] = Performs both tasks correctly Best Gaze 2: [0] = Normal Visual 3: [0] = No visual loss Facial Palsy 4: [0] = Normal symmetrical movements Motor Arm Left 5a: [0] = No drift Motor Arm Right 5b: [0] = No drift Motor Leg Left 6a: [1] = Drift Motor Leg Right 6b: [0] = No drift Limb Ataxia 7: [0] = Absent Sensory 8: [1] = [id number] sensory loss Best Language 9: [0] = No aphasia Dysarthria 10: [0] = Normal Extinction and Inattention 11: [0] = No abnormality NIHSS Total: 2 # Exam SBP: 127 DBP: 81 Mental Status: - awake - alert and oriented x 3 - follows commands Sensory: - decreased sensation right face Additional Neurologic Exam: Evaluation limited due to observational assessment. In-person exam may be helpful for more subtle signs that cannot be detected via telemedicine. # PMH-FH-SH Social History: non-smoker Medications: - No antithrombotics or anticoagulants reported # Data Head CT: - no bleed - preliminarily reviewed by me, please refer to radiology read for official reading - per radiologist read # Assessment Impression: - Transient Ischemic Attack - Ischemic Stroke (Acute) - Stroke Mimic # Plan Thrombolytic/Intervention: NOT IV Thrombolysis or IA Intervention candidate Thrombolytic Exclusion (< 3 hour window): - time of onset unclear Thrombolytic Exclusion: > 4.5 hours Intraarterial Exclusion: - clinical exam not consistent with presence of large vessel occlusion (LVO), can reconsider if LVO found on vascular imaging Blood Pressure Management: Avoid hypotension to maintain cerebral perfusion pressure (i.e., consider maintaining head of bed flat as tolerated pending CTA head results) Target Blood Pressure: SBP < 220 Labs: - CBC - hemoglobin A1c - lipid panel - ESR - comprehensive metabolic panel - troponin - TSH - urine drug screen Further toxic/ metabolic/ infectious etiologies evaluation & management as per referring service Imaging: (urgency: STAT): - CT Angiogram Head and CT Angiogram Neck AND call back with results if abnormal Imaging: (urgency: routine): - MRI Brain with AND without contrast - MRI C spine If no medical contraindication Diagnostic Test: - echo without bubble study Therapy/Evaluation: - NPO until swallow evaluation - PT/OT evaluation - speech/swallow consultation Medication: - aspirin 81 mg daily - start statin with goal of LDL < 70 Other: - telemetry monitoring - permissive hypertension - will need event monitor or loop recorder as outpatient if atrial fibrillation not found as inpatient - callback neurology if brain imaging reveals moderate to large cerebellar infarct - neurology referral as outpatient Continued medical evaluation & management as per referring service - If patient has any neurological deterioration please place Follow-up Phone Call Consult (indicating urgency of request in Notes & with STAT head CT results) for on-call teleprovider callback & further discussion - Discussed with referring ER Physician Dr. Lord Additional Recommendations: Thank you for allowing us to participate in your patient's care. # Logistics Attestation of consult completion: The patient is located at: [facility]. Facility staff participated in the visit. I performed this telemedicine visit from my offsite office utilizing interactive 2 way audio and visual telecommunication technology. Consent: Verbal consent was obtained from the patient and/or family for this encounter. Total time spent in telemedicine encounter: I spent 30 minutes reviewing clinical data and/or imaging, obtaining history, examining the patient, communicating with the onsite care team, and in preparation of this report. # Demographics First Name: JOHNSON Yuriy Last Name: JACOB Facility: [facility] ALLERGIES: Coded Allergies: No Known Drug Allergies (Verified Allergy, Unknown, 07/03/16) HOME MEDS: Reported Medications Lactulose (Lactulose) 10 Gram/15 Ml Solution, 30 ML PO DAILY 06/25/24 Gabapentin (Gabapentin) 800 Mg Tablet, 1 TAB PO TID 06/25/24 Megestrol Acetate (Megestrol Acetate Susp) 400 Mg/10 Ml (40 Mg/Ml) Susp, 1.5 ML PO BID 06/25/24 Famotidine (Famotidine) 20 Mg Tablet, 20 MG PO BID, TAB 01/05/24 VITAL SIGNS Vital Signs Date Time Temp Pulse Resp B/P (MAP) Pulse Ox O2 Delivery O2 Flow Rate FiO2 09/14/24 08:41 99.0 72 16 127/81 100 Room Air* 0 21 09/14/24 07:49 99.3 97 20 131/75 99 Room Air LABORATORY RESULTS Laboratory Tests 09/14/24 08:18: White Blood Count 4.9, Red Blood Count 3.63, Hemoglobin 11.3, Hematocrit 34.7, Mean Corpuscular Volume 95.6, Mean Corpuscular Hemoglobin 31.1, Mean Corpuscular Hemoglobin Concent 32.6, Red Cell Distribution Width 13.7, Platelet Count 250, Mean Platelet Volume 9.4, Immature Granulocyte % (Auto) 0.4, Neutrophils (%) (Auto) 57.8, Lymphocytes (%) (Auto) 25.5, Monocytes (%) (Auto) 11.4, Eosinophils (%) (Auto) 4.1, Basophils (%) (Auto) 0.8, Neutrophils # (Auto) 2.8, Lymphocytes # (Auto) 1.3, Monocytes # (Auto) 0.6, Eosinophils # (Auto) 0.20, Basophils # (Auto) 0.04, Absolute Immature Granulocyte (auto 0.02, Nucleated Red Blood Cells 0.0, Prothrombin Time 10.6, Prothromb Time International Ratio 0.94, Activated Partial Thromboplast Time 26.4, Sodium Level 140, Potassium Level 3.7, Chloride Level 106, Carbon Dioxide Level 27, Blood Urea Nitrogen 16, Creatinine 1.1, Glomerular Filtration Rate Calc 53, Random Glucose 80, Total Calcium 8.4, Total Creatine Kinase 61, Troponin I High Sensitivity < 4.0 OSKAR HUTSON MD Sep 14, 2024 09:40
[2024-09-14] MEDS ORDERED: ondanSETRON 4MG INJ IVP PRN (11:00)
[2024-09-14] MEDS: PANTOPrazole 40 MG/VIAL IVP SCH (11:24)
[2024-09-14] MEDS: 0.9%NACL 1000ML 1,000 ML IV SCH (11:25)
[2024-09-14] MEDS: ASPIRIN 81MG CHEW TAB PO SCH (11:25)
[2024-09-14] MEDS: THIAMINE HCL 100 MG/ML 2ML VIAL IVP SCH (11:25)
[2024-09-14] MEDS ORDERED: hydrALAZine 20MG/ML VIAL IV PRN (11:30)
[2024-09-14 11:39] LABS: ALANINE AMINOTRANSFERASE 18 U/L (12-78); ALBUMIN 3.2 g/dL (3.5-5.0); ASPARTATE AMINOTRANSFERASE 24 U/L (10-37); BILIRUBIN,DIRECT 0.1 mg/dL (0.0-0.3); BILIRUBIN,TOTAL 0.4 mg/dL (0.2-1.0); CHOLESTEROL 145 mg/dL (<200); HDL CHOLESTEROL 48 mg/dL (35-85); HEMOGLOBIN A1C 5.9 % (4.0-6.0); LDL DIRECT 94 mg/dL (0-99); THYROID STIMULATING HORMONE 1.57 uIU/mL (0.36-3.74); TRIGLYCERIDES 93 mg/dL (30-200)
[2024-09-14 11:48] LABS: APPEARANCE,URINE CLEAR (CLEAR); BILIRUBIN,URINE NEGATIVE (NEGATIVE); COLOR,URINE LIGHT-YELLOW (YELLOW); GLUCOSE, URINE (UA) NEGATIVE (NEGATIVE); KETONES,URINE NEGATIVE (NEGATIVE); LEUKOCYTE ESTERASE ,URINE 25 Leu/uL (NEGATIVE); NITRATE,URINE NEGATIVE (NEGATIVE); OCCULT BLOOD,URINE NEGATIVE (NEGATIVE); PH,URINE 6.5 (5.0-8.0); PROTEIN,URINE NEGATIVE (NEGATIVE); UROBILINOGEN,URINE 0.2 mg/dL (0.2-1.0)
[2024-09-14 11:56] LABS: AMPHET/METH SCREEN,URINE NEGATIVE (NEGATIVE); BARBITURATE SCREEN, URINE NEGATIVE (NEGATIVE); BENZODIAZEPINES SCREEN,URINE NEGATIVE (NEGATIVE); CANNABINOID SCREEN,URINE NEGATIVE (NEGATIVE); COCAINE SCREEN,URINE NEGATIVE (NEGATIVE); OPIATE SCREEN,URINE NEGATIVE (NEGATIVE); PHENCYCLIDINE SCREEN,URINE NEGATIVE (NEGATIVE)
[2024-09-14 12:03] LABS: ADD UA MICROSCOPIC YES
[2024-09-14 12:06] LABS: BACTERIA,URINE RARE /HPF (None Seen); RBC,URINE 0-1 /HPF (0-1); SQUAMOUS EPITHELIAL CELL,UR MOD /HPF (0-2)
[2024-09-14] MEDS: morPHINE 2 MG SYG IVP PRN (12:06)
[2024-09-14] MEDS ORDERED: IOHEXOL-350 75 ML VIAL IV ONE (12:52)
[2024-09-14] MEDS: cefTRIAXone 1G VIAL IVPB SCH (14:53)
--- NOTE | 2024-09-14 16:25 | HP ---
[facility] HISTORY AND PHYSICAL Date of Service: Sep 14, 2024 Time of Service: 16:15 HISTORY OF PRESENT ILLNESS: Date of service: 09/14/2024, patient was seen in ER [place] 73-year-old female with underlying history of gastroparesis, with prior history of gastrojejunostomy tube placement who presented to the ER for further evaluation of sided facial numbness and right-sided neck pain radiating to the right arm which started close to 5:00 a.m. on 09/13/2024. Symptoms have been persistent and nonresolving prompting patient to come to the ER for further evaluation. Patient does have history of cervical spine surgery involving C4-C6 by Dr. Waller about 15-20 years ago. Denies any significant weakness of the right side of the face or the right upper extremity. She denies any previous history of stroke. Denies any previous history of seizures. Patient does have underlying history of gastroparesis and previously has undergone hiatal hernia repair with mesh reinforcement and partial gastrectomy on 01/[address] Yin followed by gastrojejunostomy tube placement by Dr. Hawkins on 03/2024.. Patient with regards to nutrition states that she gets 60% of nutrition through tube feeds and 40% by oral intake. On presentation to the hospital, patient was noted to be afebrile with T-max of 99.3 F, heart rate of 97, blood pressure 131/75. Labs on presentation was unremarkable. Patient was evaluated by tele Neurology with recommendations for patient to be admitted and patient to undergo further evaluation for acute CVA. Patient did have CT head without contrast which showed findings of right basal ganglia lacunar infarct of unknown chronicity. Patient will be admitted and consultation with Neurology will be requested. REVIEW OF SYSTEMS CONSTITUTIONAL: Denies fevers, chills, or night sweats. No unintentional weight loss reported. NEUROLOGICAL: Right-sided facial numbness and right upper extremity arm pain ENT: No hearing loss, otalgia, otorrhea, rhinitis, rhinorrhea, hoarseness, or sore throat. CARDIOVASCULAR: Denies any exertional angina, dyspnea on exertion, orthopnea, paroxysmal nocturnal dyspnea, palpitations, life-threatening arrhythmias, claudication. PULMONARY: Denies any shortness of breath, cough, phlegm/sputum, hemoptysis, pleuritic chest pain. SLEEP: Denies morning headaches, daytime somnolence or napping. Denies difficulty falling asleep, staying asleep, waking from sleep. Denies knowledge of snoring. GASTROINTESTINAL: Denies any type of dysphagia to either liquids or solids. Denies nausea, vomiting, pyrosis, early satiety, abdominal pain, diarrhea, constipation, or changes in stool consistency or caliber. Denies coffee-ground emesis, hematemesis, hematochezia, or melanotic stools. GENITOURINARY: Denies frequency, urgency, nocturia, hematuria or incontinence (Storage/Irritative symptoms.) Low urinary stream, straining to void, urinary intermittency or hesitancy, splitting of the voiding stream, terminal dribbling. ENDOCRINOLOGIC: Denies polyuria, polydipsia, polyphagia or heat/cold intolerances. HEMATOLOGIC: Denies thrombophilia/previous clots, or coagulopathy/bleeding disorders. ONCOLOGIC: Denies personal history of malignancy. DERMATOLOGIC: Denies rashes or pruritus. PSYCHIATRIC: Denies any suicidal or homicidal ideation. Denies hallucinations. PAST MEDICAL HISTORY: Gastroparesis, previous history of hypertension and hyperlipidemia PAST SURGICAL HISTORY: Cervical spine surgery by Dr. waller about 15-20 years involving C4-C6 with cervical spine fusion, history of right rotator cuff surgery, history of right knee surgery, hysterectomy, hiatal hernia repair with partial gastrectomy by Dr. Yin in 01/2024, history of gastrojejunostomy tube placement by Dr. Hawkins on 03/2024 PAST SOCIAL HISTORY: Patient denies active smoking or alcohol consumption FAMILY HISTORY: Denies pertinent family history Allergies: Patient denies known drug allergies Home medications: Patient reports being on outpatient home medication with gabapentin Coded Allergies: No Known Drug Allergies (Verified Allergy, Unknown, 07/03/16) PHYSICAL EXAM GENERAL APPEARANCE: The patient is awake, alert, and oriented, in no acute cardiopulmonary distress. NEUROLOGICAL: Cranial nerves II-XII grossly intact. Motor is 5/5 in left upper and left lower extremity, she has 4+/5 strength of the right upper extremity HEENT: Face is symmetric. Pupils are equal and reactive. Extraocular movements are intact. NECK: Supple. No JVD. No thyromegaly. No submental, submandibular, pre- /postauricular, occipital or supraclavicular lymphadenopathy. CHEST: Normal chest expansion. No Telemetry. LUNGS: Absence of any rales, rhonchi or any wheezing. CARDIOVASCULAR: Regular. S1 and S2 normal. No appreciable rubs, murmurs or gallops. ABDOMEN: Soft, nontender, and nondistended. There is no rebound, voluntary guarding, or rigidity. : Deferred. No Crowley. EXTREMITIES: Non-edematous and not cyanotic. No clubbing. Good capillary refill. SKIN: No skin breakdown. Vital Sign (Last 24 Hours) 09/14/24 08:41 Temp 99.0 Pulse 72 Resp 16 B/P (MAP) 127/81 Pulse Ox 100 O2 Delivery Room Air* O2 Flow Rate 0 FiO2 21 LABS: Laboratory: Test 09/14/24 11:33 09/14/24 08:18 Range/Units Urine Color LIGHT-YELLOW YELLOW Urine Appearance CLEAR CLEAR Urine pH 6.5 5.0-8.0 Urine Specific [place] 1.007 1.001-1.031 Urine Protein NEGATIVE NEGATIVE mg/dL Urine Glucose (UA) NEGATIVE NEGATIVE mg/dL Urine Ketones NEGATIVE NEGATIVE mg/dL Urine Occult Blood NEGATIVE NEGATIVE Urine Nitrate NEGATIVE NEGATIVE Urine Bilirubin NEGATIVE NEGATIVE mg/dL Urine Urobilinogen 0.2 0.2-1.0 mg/dL Urine Leukocyte Esterase 25 H NEGATIVE [place]/uL Urine RBC 0-1 0-1 /HPF Urine WBC 2-5 H 0-1 /HPF Urine Squamous Epithelial Cells MOD 0-2 /HPF Urine Bacteria RARE None Seen /HPF Urine Opiates Screen NEGATIVE NEGATIVE Urine Barbiturates Screen NEGATIVE NEGATIVE Urine Phencyclidine Screen NEGATIVE NEGATIVE Urine Amphetamines Screen NEGATIVE NEGATIVE Urine Benzodiazepines Screen NEGATIVE NEGATIVE Urine Cocaine Screen NEGATIVE NEGATIVE Urine Marijuana (THC) Screen NEGATIVE NEGATIVE White Blood Count 4.9 4.8-10.8 K/uL Red Blood Count 3.63 L 4.00-5.50 MIL/uL Hemoglobin 11.3 L 12.0-16.0 g/dL Hematocrit 34.7 L 36-48 % Mean Corpuscular Volume 95.6 79-99 fL Mean Corpuscular Hemoglobin 31.1 27.0-33.0 pg Mean Corpuscular Hemoglobin Concent 32.6 32.0-36.0 g/dL Red Cell Distribution Width 13.7 11.0-15.5 % Platelet Count 250 130-400 K/uL Mean Platelet Volume 9.4 7.5-10.5 fL Immature Granulocyte % (Auto) 0.4 0-1 % Neutrophils (%) (Auto) 57.8 40.0-77.0 % Lymphocytes (%) (Auto) 25.5 21.0-51.0 % Monocytes (%) (Auto) 11.4 3.0-13.0 % Eosinophils (%) (Auto) 4.1 0.0-8.0 % Basophils (%) (Auto) 0.8 0.0-5.0 % Neutrophils # (Auto) 2.8 1.8-7.7 K/uL Lymphocytes # (Auto) 1.3 1.0-4.8 K/uL Monocytes # (Auto) 0.6 0.1-1.0 K/uL Eosinophils # (Auto) 0.20 0.00-0.70 K/uL Basophils # (Auto) 0.04 0.00-0.20 K/uL Absolute Immature Granulocyte (auto 0.02 0-1 K/uL Nucleated Red Blood Cells 0.0 0.0-0.19 % Erythrocyte Sedimentation Rate 13 0-30 MM/HR Prothrombin Time 10.6 9.6-11.6 SEC Prothromb Time International Ratio 0.94 0.85-1.15 Activated Partial Thromboplast Time 26.4 26.3-35.5 SEC Sodium Level 140 136-145 mmol/L Potassium Level 3.7 3.5-5.1 mmol/L Chloride Level 106 101-111 mmol/L Carbon Dioxide Level 27 21-32 mmol/L Blood Urea Nitrogen 16 7-18 mg/dL Creatinine 1.1 H 0.5-1.0 mg/dL Glomerular Filtration Rate Calc 53 >90 mL/min Random Glucose 80 70-105 mg/dL Hemoglobin A1c 5.9 4.0-6.0 % Estimated Average Glucose (eAG) 123 70-126 mg/dL Total Calcium 8.4 L 8.5-10.1 mg/dL Magnesium Level 2.00 1.80-2.40 mg/dL Total Bilirubin 0.4 0.2-1.0 mg/dL Direct Bilirubin 0.1 0.0-0.3 mg/dL Aspartate Amino Transf (AST/SGOT) 24 10-37 U/L Alanine Aminotransferase (ALT/SGPT) 18 12-78 U/L Alkaline Phosphatase 72 50-136 U/L Total Creatine Kinase 61 # 21-232 U/L Troponin I High Sensitivity < 4.0 L 4-50 ng/L C-Reactive Protein, Quantitative < 0.50 L 0.5-3.0 mg/L Total Protein 7.0 6.0-8.3 g/dL Albumin 3.2 L 3.5-5.0 g/dL Triglycerides Level 93 30-200 mg/dL Cholesterol Level 145 # <200 mg/dL LDL Cholesterol 94 0-99 mg/dL HDL Cholesterol 48 35-85 mg/dL Procalcitonin < 0.05 L 0.05-0.5 ng/mL Thyroid Stimulating Hormone (TSH) 1.57 # 0.36-3.74 uIU/mL Current Medications Medications (Trade) Dose Ordered Sig/Shon Route PRN Reason Start Time Stop Time Status Last Admin Dose Admin Acetaminophen (TYLenol 325MG TAB) 650 mg Q6H PRN PO MILD PAIN (1-3) 09/14/24 11:00 10/14/24 10:59 Aspirin (Aspirin 81mg Chew Tab) 81 mg Q24H PO 09/14/24 11:00 10/14/24 10:59 09/14/24 11:25 81 MG Ceftriaxone Sodium (ROCEphine 1G INJ) 1 gm Q12H IVPB 09/14/24 14:30 09/24/24 14:29 09/14/24 15:13 1 GM Gabapentin (NEURontin 100 mg CAP) 400 mg TID PO 09/14/24 16:00 10/14/24 15:59 Hydralazine HCl (APRESOLine 20MG INJ) 10 mg Q6H PRN IV ADMINISTER FOR SBP > 170 09/14/24 11:30 10/14/24 11:29 Morphine Sulfate (morPHINE 2MG SYG) 2 mg Q6H PRN IVP SEVERE PAIN (7-10) 09/14/24 11:00 09/21/24 10:59 09/14/24 12:06 2 MG Ondansetron HCl (zoFRAN 4MG INJ) 4 mg Q6H PRN IVP NAUSEA/VOMITING 09/14/24 11:00 10/14/24 10:59 Pantoprazole Sodium (PROTonix 40MG INJ) 40 mg Q24H IVP 09/14/24 11:00 10/14/24 10:59 09/14/24 11:24 40 MG Sodium Chloride 1,000 ml @ 75 mls/hr [id number] IV 09/14/24 11:00 10/14/24 10:59 09/14/24 11:25 75 MLS/HR Thiamine HCl (Vitamin B-1) 100 mg Q24H IVP 09/14/24 11:00 10/14/24 10:59 09/14/24 11:25 100 MG DIAGNOSTICS / RADIOLOGY: SERVICE 5 REASON: R face numbness, neck pain > 24 hours ORDERING PHYSICIAN: ESTHER GUERRERO DO PROCEDURE: HEAD WO - CT HEAD/BRAIN W/O CONTRAST CT HEAD/BRAIN W/O CONTRAST HISTORY: Right facial numbness COMPARISON: None TECHNIQUE: Multiple sequential axial images of the head were obtained from the base of the skull through vertex. Patient was not given contrast through intravenous route. FINDINGS: The ventricles and extraventricular CSF spaces are dilated consistent with cerebral atrophy. Nonspecific white matter changes seen. There is right basal ganglia lacunar infarct. There is no midline shift, mass effect or herniation. No acute intracranial bleed is seen. Visualized portion of the paranasal sinuses are grossly within normal limits. IMPRESSION: 1. No acute intracranial bleed is seen. 2. Atrophy with white matter changes. Right basal ganglia lacunar infarct. CT was performed with one or more following dose reduction techniques: automated exposure control, adjustment of the mA and kv according to patient's size, or use of a iterative reconstruction technique. DICTATED BY: LANDON MCQUEEN MD DATE: 09/14/24902 ELECTRONICALLY SIGNED BY: LANDON MCQUEEN MD DATE: 09/14/24912 ASSESSMENT: Nonresolving right-sided facial numbness, POA Right-sided neck pain with pain radiating to the right arm, POA Rule out acute CVA versus cervical radiculopathy, POA Evidence of right basal ganglia lacunar infarct, unknown chronicity, noted on CT head from 09/14/2024, POA Mild urinary tract infection, POA History of gastroparesis with prior history of hiatal hernia repair with partial gastrectomy with gastrojejunostomy tube placement, POA History of cervical spine fusion involving C4-C6, POA PLAN: Patient will be admitted to medical-surgical floor under telemetry monitoring CT head without contrast showed findings of right basal ganglia lacunar stroke, we will obtain MRI brain with and without contrast to confirm if there is an actual stroke present, as well as MRI cervical spine per recommendations by tele neurology, discussed patient's case with Dr. Morillo, current symptoms are not correlating with findings of right basal ganglia lacunar stroke which usually should not cause pain symptoms will be on the contralateral side We will follow up MRI cervical spine to assess for significant spondyloarthropathy or foraminal stenosis, we will assess if patient has radicular pain as well Patient to continue with home dose of gabapentin We will obtain CT angio head and neck and rule out any significant carotid artery stenosis Consultation with speech will be requested Patient will be started on IV Rocephin, reports that she was recently diagnosed with UTI, continues to have urinary frequency, we will obtain urine culture We will start patient on IV hydration with NS at 75 mL/hour We will start daily thiamine supplementation All labs will be repeated in the morning We will obtain physical therapy evaluation in the morning Date of service: 09/14/2024 Plan of care was discussed with patient at bedside, Angel King MD Advanced Care Planning: Which of the following were discussed: Hospice care: Yes __ No _X_ Therapeutic options: Yes _X_ No __ Advance directives: Yes _X_ No __ Other discussions: Discussed with who?: Patient Voluntary nature of this service was explained to the patient? Yes _x_ No __ Amount of time spent: 20 minutes ANGEL KING MD Sep 14, 2024 16:25
--- NOTE | 2024-09-14 16:31 | HMCIMG ---
MR BRAIN WWO CON HISTORY: Right facial numbness COMPARISON: 03/03/2024 TECHNIQUE: MRI of the brain was performed utilizing multiple pulse sequences in axial, coronal and sagittal planes. Patient was given 10 cc of Clariscan through intravenous route. FINDINGS: There are motion artifacts degrading the image quality The ventricles and extraventricular CSF spaces are dilated consistent with cerebral atrophy. Nonspecific white matter changes are seen. There is no midline shift, mass effect or herniation. No subacute hemorrhage is seen. No MR evidence of acute infarct is seen in the diffusion weighted images. Cerebellar tonsils are in normal position. No evidence of mucoperiosteal thickening is seen of the visualized paranasal sinuses. No MR evidence of mass lesion or abnormal enhancement is seen. IMPRESSION: 1. No MR evidence of acute infarct is seen in the diffusion weighted images. Atrophy with white matter changes.
--- NOTE | 2024-09-14 16:36 | HMCIMG ---
MR SPINAL CANAL, CERV WO CON HISTORY: No additional history given. COMPARISON: None TECHNIQUE: MRI of the cervical spine was performed utilizing multiple pulse sequences in axial, coronal and sagittal plane. Patient was not given contrast through intravenous route. FINDINGS: No abnormal signal intensity is seen of the visualized bony structure. No loss of vertebral height is seen. Orthopedic fixation plates and screws are seen traversing the C4-C6 levels with paramagnetic susceptibility artifacts limiting evaluation. There is reversal of normal lordotic cervical curvature which may be related to muscle spasm or positioning. Degenerative disc signals are present at all cervical spine levels. Cerebellar tonsils are in normal position. The cervical cord is of normal signal intensity without cord compression or impingement. At the C3-4 level, there is spondylotic disc causing anterior CSF space effacement with bilateral lateral recess stenosis and bilateral neural foraminal stenosis. The central canal measures approximately 7.1 mm in its anterior posterior dimension. At the C4-5 level, there is spondylotic disc causing anterior CSF space effacement with bilateral lateral recess stenosis and bilateral neural foraminal stenosis. The central canal measures approximately 7.7 mm in its anterior posterior dimension. At the C5-6 level, there is spondylotic disc causing anterior CSF space effacement with bilateral lateral recess stenosis and bilateral neural foraminal stenosis. The central canal measures approximately 7.4 mm in its anterior posterior dimension. At the C6-7 level, there is spondylotic disc causing anterior CSF space effacement with bilateral lateral recess stenosis and bilateral neural foraminal stenosis. The central canal measures approximately 6.7 mm in its anterior posterior dimension. IMPRESSION: 1. 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 Postop changes are seen limiting evaluation.
--- NOTE | 2024-09-14 16:39 | HMCIMG ---
CT ANGIO HEAD AND NECK HISTORY: Right basal ganglia lacunar infarct COMPARISON: None TECHNIQUE: CT angiography of the head was performed. The study was performed using angiographic technique with maximum intensity projection reconstruction images. Patient was given 75 cc of Omnipaque through intravenous route. FINDINGS: The ventricles and extraventricular CSF spaces are nondilated for patient's age. There is no midline shift, mass effect or herniation. No acute intracranial bleed is seen. Visualized portion of the paranasal sinuses are grossly within normal limits. No abnormal contrast enhancement is seen. No CT evidence of cerebral aneurysm or abnormal arteriovenous communication is seen. Diffuse atherosclerosis changes are present. Vertebrobasilar arterial system is grossly within normal limits. IMPRESSION: CTA Head 1. Atherosclerotic disease. Otherwise unremarkable CTA of the brain. TECHNIQUE: CT angiography of the neck was performed. The study was performed using angiographic technique with maximum intensity projection reconstruction images. FINDINGS: There are degenerative changes of the cervical spine. Parapharyngeal fat planes are preserved bilaterally. The airway is patent. Normal enhancement of the thyroid gland is noted. Visualized portion of the lung apices are unremarkable. The common, internal and external carotid arteries are visualized. No hemodynamically significant lesion is seen of either extracranial carotid artery system. Both vertebral arteries are seen with antegrade flow. IMPRESSION: CTA Neck 1. Atherosclerotic disease. No hemodynamically significant lesion is seen of either extracranial carotid artery system. CT was performed with one or more following dose reduction techniques: automated exposure control, adjustment of the mA and kv according to patient's size, or use of a iterative reconstruction technique.
[2024-09-14] MEDS ORDERED: GADOTERATE MEGLUMINE 5 MMOL/10 ML VIAL IV ONE (16:53)
[2024-09-14] MEDS: GABApentin 100 MG CAPSULE PO SCH (17:07)
--- NOTE | 2024-09-14 19:10 | NUR ---
spoke to dr. manuel for new consult and said "ok" to see patient patient resting in bed, near nurses station
--- NOTE | 2024-09-14 19:49 | NUR ---
TOOK OVER PATIENT AT THIS TIME
[2024-09-14] MEDS: acetaMINOPHEN 325 MG TAB PO PRN (21:15)
[2024-09-15 02:02] VITALS: O2SAT 98
[2024-09-15 02:21] VITALS: BP 106/59; PULSE 66; RESP 18; TEMP 98.5
[2024-09-15] MEDS ORDERED: GABA-534 PO (02:54)
[2024-09-15 04:00] VITALS: BP 120/68; PULSE 66; RESP 18; TEMP 98.2
[2024-09-15 07:13] LABS: BASOPHILS # (AUTO) 0.03 K/uL (0.00-0.20); BASOPHILS % (AUTO) 0.6 % (0.0-5.0); EOSINOPHILS # (AUTO) 0.21 K/uL (0.00-0.70); EOSINOPHILS % (AUTO) 4.4 % (0.0-8.0); HEMATOCRIT 33.6 % (36-48); IMMATURE GRANULOCYTE ABSOLUTE 0.01 K/uL (0-1); LYMPHOCYTES # (AUTO) 1.5 K/uL (1.0-4.8); LYMPHOCYTES % (AUTO) 31.6 % (21.0-51.0); MEAN CORPUSCULAR HEMOGLOBIN 30.9 pg (27.0-33.0); MEAN CORPUSCULAR HGB CONC 32.4 g/dL (32.0-36.0); MEAN CORPUSCULAR VOLUME 95.2 fL (79-99); MONOCYTES # (AUTO) 0.5 K/uL (0.1-1.0); MONOCYTES % (AUTO) 10.5 % (3.0-13.0); NEUTROPHILS # (AUTO) 2.5 K/uL (1.8-7.7); NEUTROPHILS % (AUTO) 52.7 % (40.0-77.0); NUCLEATED RED BLOOD CELLS 0.4 % (0.0-0.19); PLATELET COUNT (AUTO) 246 K/uL (130-400); RED BLOOD CELL COUNT(AUTO) 3.53 MIL/uL (4.00-5.50); RED CELL DISTRIBUTION WIDTH 13.6 % (11.0-15.5); WHITE BLOOD COUNT (AUTO) 4.8 K/uL (4.8-10.8)
[2024-09-15 07:39] LABS: BILIRUBIN,TOTAL 0.4 mg/dL (0.2-1.0); TOTAL PROTEIN, SERUM 6.4 g/dL (6.0-8.3)
[2024-09-15 08:00] VITALS: BP 115/76; PULSE 75; RESP 18; TEMP 98.8; O2SAT 98
[2024-09-15 12:00] VITALS: BP 110/72; PULSE 67; RESP 18; TEMP 98.4
[2024-09-15] MEDS ORDERED: ASPI-1005 PO (12:04)
[2024-09-15] MEDS ORDERED: CEFD300C3 PO (12:08)
--- NOTE | 2024-09-15 12:08 | DS ---
Discharge Summary Hospital Course Summary: 73-year-old female with underlying history of gastroparesis, with prior history of gastrojejunostomy tube placement who presented to the ER for further evaluation of sided facial numbness and right-sided neck pain radiating to the right arm. Patient does have history of cervical spine surgery involving C4-C6 by Dr. Mayfield about 15-20 years ago. Patient does have underlying history of gastroparesis and previously has undergone hiatal hernia repair with mesh reinforcement and partial gastrectomy on 01/[address] Yin followed by gastrojejunostomy tube placement by Dr. Hawkins on 03/2024.. Patient with regards to nutrition states that she gets 60% of nutrition through tube feeds and 40% by oral intake. On presentation to the hospital, patient was noted to be afebrile with T-max of 99.3 F, heart rate of 97, blood pressure 131/75. Labs on presentation was unremarkable. Patient was evaluated by tele Neurology with recommendations for patient to be admitted and patient to undergo further evaluation for acute CVA. Patient did have CT head without contrast which showed findings of right basal ganglia lacunar infarct of unknown chronicity. Brain MRI was done, no evidence of acute infarct. Atrophy with white matter changes. Cervical spine CT and MRI done, showing degenerative joint disease with cervical spine spondylosis with central cannula narrowing. Today the patient is hemodynamically stable, alert oriented x3, we will like to be discharged home. Denies dizziness, no blurry vision, no chest pain, no shortness a breath, no nausea, no vomiting, no abdominal pain, no diarrhea, no constipation, no melena, no hematochezia, no hematemesis, no hematuria, no dysuria. Toolman(s): Tele neurology. Assessment/Plan: FINAL DIAGNOSIS Nonresolving right-sided facial numbness, POA Right-sided neck pain with pain radiating to the right arm, POA Rule out acute CVA versus cervical radiculopathy, POA Evidence of right basal ganglia lacunar infarct, unknown chronicity, noted on CT head from 09/14/2024, POA Mild urinary tract infection, POA History of gastroparesis with prior history of hiatal hernia repair with partial gastrectomy with gastrojejunostomy tube placement, POA History of cervical spine fusion involving C4-C6, POA Discharge Instructions: PATIENT TO BE DISCHARGED HOME TODAY, TO FOLLOW UP WITH HER PRIMARY CARE PHYSICIAN AN OUTPATIENT. PATIENT TO RETURN TO HOSPITAL IF HER CONDITION CHANGES. PATIENT AGREED WITH PLAN AND UNDERSTOOD THE INFORMATION PROVIDED. Home Medications: Reported Medications Gabapentin (Gabapentin) 400 Mg Capsule, 1 CAP PO TID PRN for PAIN for 30 Days, #90 CAP 0 Refills 09/15/24 Discontinued Reported Medications Lactulose (Lactulose) 10 Gram/15 Ml Solution, 30 ML PO DAILY 06/25/24 Gabapentin (Gabapentin) 800 Mg Tablet, 1 TAB PO TID 06/25/24 Megestrol Acetate (Megestrol Acetate Susp) 400 Mg/10 Ml (40 Mg/Ml) Susp, 1.5 ML PO BID 06/25/24 Famotidine (Famotidine) 20 Mg Tablet, 20 MG PO BID, TAB 01/05/24 New Medications: Cefdinir (Cefdinir) 300 Mg Capsule 1 CAP PO DAILY for 5 Days, #5 CAP 0 Refills Aspirin (Aspirin 81MG Chew Tab) 81 Mg Tab.chew 81 MG PO Q24H for 30 Days, #30 TAB.CHEW 1 Refill Continued Medications: Gabapentin (Gabapentin) 400 Mg Capsule 1 CAP PO TID PRN for PAIN for 30 Days, #90 CAP 0 Refills Time spent arranging discharge: 31-60 minutes REED RAMOS MD Sep 15, 2024 12:08
--- NOTE | 2024-09-15 12:45 | NUR ---
discharge gave patient printed discharge paperwork, educated patient regarding diet, activity, follow up appointments, medications, signs and symptoms to report/return to ER. Answered pt questions, patient and family understood. Advised patient to obtain MRI records from medical records to take to primary care provider per Dr. Quinones.
--- NOTE | 2024-09-15 21:49 | CONS ---
CONSULTATION NOTE Date of Service: Sep 15, 2024 Reason for Consultation: numbness Requesting Physician: hospitalist HISTORY OF PRESENT ILLNESS: This is a very nice 73-year-old lady who presents with acute onset of right- sided numbness and pain. Initially reported as occurring on Thursday, the patient clarified that on Thursday, while turning her head to the right side on her pillow, she experienced a sensation of something hard rolling in her neck. Subsequently, she developed numbness in her right arm and leg. The following night, around 1 AM, she was awakened by severe pain and numbness in her right leg. The patient reports persistent numbness, describing it as feeling like someone slapped her hard. She also complains of neck pain, localized to the right side. The patient has a history of cervical spondylosis with cervical surgery performed 20 years ago and denies any neck pain since the surgery until this recent incident. She also has a history of gastroparesis, resulting in a partial gastrectomy and PEG tube placement for nutritional support, which provides 60% of her intake. She has been taking gabapentin 800mg as needed, although she was recently given 400mg. REVIEW OF SYSTEMS CONSTITUTIONAL: Denies fever, chills, or fatigue. HEAD/FACE: No signs of trauma. EENT: Denies eye pain, blurred vision, double vision, or light sensitivity. RESPIRATORY: Denies shortness of breath, cough, wheezing CARDIOVASCULAR: Denies chest pain, palpitation, syncope GASTROINTESTINAL/ABDOMINAL: Denies abdominal pain, constipation, diarrhea, nausea or vomiting GENITOURINARY: Denies dysuria or hematuria. MUSCULOSKELETAL: Denies joint pain, tenderness, or trauma. INTEGUMENTARY: Denies rash or itchiness NEUROLOGICAL/PSYCH: Denies anxiety, depression, heat or cold intolerance. PAST MEDICAL HISTORY: Cervical spondylosis PAST SURGICAL HISTORY: None PAST SOCIAL HISTORY: No tobacco alcohol or rec drug abuse FAMILY HISTORY: No family history of stroke or seizure. Coded Allergies: No Known Drug Allergies (Verified Allergy, Unknown, 07/03/16) PHYSICAL EXAM EYES: Anicteric. Pupils equal and reactive. HENT: No oral thrush seen, moist Oral mucosa NECK: Supple, no JVD or thyromegaly. LUNGS: Good air entry. No rales, no rhonchi. CARDIOVASCULAR: S1, S2 regular. No murmur heard. ABDOMEN: Soft, non tender, bowel sounds present, no organomegaly CENTRAL NERVOUS SYSTEM: Awake, alert, oriented x 3. No focal deficits. paresthesias. SKIN: No rashes, no swelling. LYMPHATICS: No peripheral lymphadenopathy MUSCULOSKELETAL: No joint swelling, erythema or tenderness. EXTREMITIES: No cyanosis or clubbing BACK: No deformity, no pressure ulcer. GENITOURINARY: No dysuria or hematuria Vital Sign (Last 24 Hours) 09/15/24 09/15/24 08:00 12:00 Temp 98.4 Pulse 67 Resp 18 B/P (MAP) 110/72 Pulse Ox 100 O2 Delivery Room Air O2 Flow Rate 0 FiO2 21 Intake & Output (last 24hrs) 09/14/24 09/14/24 09/15/24 15:00 23:00 07:00 Intake Total 350.0 ml Balance 350.0 ml LABS: Laboratory: Test 09/15/24 06:38 09/14/24 11:33 09/14/24 08:18 Range/Units White Blood Count 4.8 4.8-10.8 K/uL Red Blood Count 3.53 L 4.00-5.50 MIL/uL Hemoglobin 10.9 L 12.0-16.0 g/dL Hematocrit 33.6 L 36-48 % Mean Corpuscular Volume 95.2 79-99 fL Mean Corpuscular Hemoglobin 30.9 27.0-33.0 pg Mean Corpuscular Hemoglobin Concent 32.4 32.0-36.0 g/dL Red Cell Distribution Width 13.6 11.0-15.5 % Platelet Count 246 130-400 K/uL Mean Platelet Volume 9.4 7.5-10.5 fL Immature Granulocyte % (Auto) 0.2 0-1 % Neutrophils (%) (Auto) 52.7 40.0-77.0 % Lymphocytes (%) (Auto) 31.6 21.0-51.0 % Monocytes (%) (Auto) 10.5 3.0-13.0 % Eosinophils (%) (Auto) 4.4 0.0-8.0 % Basophils (%) (Auto) 0.6 0.0-5.0 % Neutrophils # (Auto) 2.5 1.8-7.7 K/uL Lymphocytes # (Auto) 1.5 1.0-4.8 K/uL Monocytes # (Auto) 0.5 0.1-1.0 K/uL Eosinophils # (Auto) 0.21 0.00-0.70 K/uL Basophils # (Auto) 0.03 0.00-0.20 K/uL Absolute Immature Granulocyte (auto 0.01 0-1 K/uL Nucleated Red Blood Cells 0.4 H 0.0-0.19 % Sodium Level 143 136-145 mmol/L Potassium Level 4.0 3.5-5.1 mmol/L Chloride Level 110 101-111 mmol/L Carbon Dioxide Level 25 21-32 mmol/L Blood Urea Nitrogen 13 7-18 mg/dL Creatinine 1.0 0.5-1.0 mg/dL Glomerular Filtration Rate Calc 60 >90 mL/min Random Glucose 84 70-105 mg/dL Total Calcium 8.7 8.5-10.1 mg/dL Magnesium Level 2.00 1.80-2.40 mg/dL Total Bilirubin 0.4 0.2-1.0 mg/dL Aspartate Amino Transf (AST/SGOT) 20 10-37 U/L Alanine Aminotransferase (ALT/SGPT) 13 # 12-78 U/L Alkaline Phosphatase 65 50-136 U/L Total Protein 6.4 6.0-8.3 g/dL Albumin 3.0 L 3.5-5.0 g/dL Urine Color LIGHT-YELLOW YELLOW Urine Appearance CLEAR CLEAR Urine pH 6.5 5.0-8.0 Urine Specific Mcleod 1.007 1.001-1.031 Urine Protein NEGATIVE NEGATIVE mg/dL Urine Glucose (UA) NEGATIVE NEGATIVE mg/dL Urine Ketones NEGATIVE NEGATIVE mg/dL Urine Occult Blood NEGATIVE NEGATIVE Urine Nitrate NEGATIVE NEGATIVE Urine Bilirubin NEGATIVE NEGATIVE mg/dL Urine Urobilinogen 0.2 0.2-1.0 mg/dL Urine Leukocyte Esterase 25 H NEGATIVE Chela/uL Urine RBC 0-1 0-1 /HPF Urine WBC 2-5 H 0-1 /HPF Urine Squamous Epithelial Cells MOD 0-2 /HPF Urine Bacteria RARE None Seen /HPF Urine Opiates Screen NEGATIVE NEGATIVE Urine Barbiturates Screen NEGATIVE NEGATIVE Urine Phencyclidine Screen NEGATIVE NEGATIVE Urine Amphetamines Screen NEGATIVE NEGATIVE Urine Benzodiazepines Screen NEGATIVE NEGATIVE Urine Cocaine Screen NEGATIVE NEGATIVE Urine Marijuana (THC) Screen NEGATIVE NEGATIVE Erythrocyte Sedimentation Rate 13 0-30 MM/HR Prothrombin Time 10.6 9.6-11.6 SEC Prothromb Time International Ratio 0.94 0.85-1.15 Activated Partial Thromboplast Time 26.4 26.3-35.5 SEC Hemoglobin A1c 5.9 4.0-6.0 % Estimated Average Glucose (eAG) 123 70-126 mg/dL Direct Bilirubin 0.1 0.0-0.3 mg/dL Total Creatine Kinase 61 # 21-232 U/L Troponin I High Sensitivity < 4.0 L 4-50 ng/L C-Reactive Protein, Quantitative < 0.50 L 0.5-3.0 mg/L Triglycerides Level 93 30-200 mg/dL Cholesterol Level 145 # <200 mg/dL LDL Cholesterol 94 0-99 mg/dL HDL Cholesterol 48 35-85 mg/dL Procalcitonin < 0.05 L 0.05-0.5 ng/mL Thyroid Stimulating Hormone (TSH) 1.57 # 0.36-3.74 uIU/mL DIAGNOSTICS / RADIOLOGY: [ ] ASSESSMENT / PLAN: Cervical radiculopathy 73-year-old female with a history of cervical spondylosis and cervical surgery 20 years ago presents with acute onset of right-sided numbness and pain after turning her head on a pillow. Symptoms began on Thursday, progressing to persistent numbness in the right arm and leg. The patient reports feeling like she was slapped hard, indicating the severity of numbness. MRI of the neck reveals significant degeneration and nerve compression, likely explaining the patient's symptoms. Neurological exam shows slight weakness in right dorsiflexion and decreased sensation on the right side. Brain MRI was negative for stroke. The patient has not been evaluated by a neurosurgeon since her surgery. - Increase gabapentin to 800 mg TID as needed for pain management - Neurosurgery consultation for evaluation of cervical spine - Physical therapy evaluation and treatment - Ensure patient safety before discharge to prevent falls and further injury - Outpatient follow-up with neurosurgeon Gastroparesis status post partial gastrectomy Patient reports history of gastroparesis requiring partial gastrectomy (3/4 of stomach removed) and PEG tube placement. Currently receiving 60% of nutrition through PEG tube and consuming 40% regular food orally. - Continue current nutrition regimen with PEG tube supplementation - Monitor nutritional status Thank you for your consultation. I will sign off. KALEB JUAREZ MD Sep 15, 2024 21:49
== END 2024-09-15 12:45 | disposition home or self-care (01) ==
LOC: EDH 07:47 → EDHIP 10:51 → INTOOBSV 10:51 → EDHIP 23:00 → 4BH 09-15 00:31
PROVIDERS: ADMIT Internal Medicine; ATTEND Internal Medicine
DX: R20.0 Anesthesia of skin (principal); M54.2 Cervicalgia; N39.0 Urinary tract infection, site not specified; M47.812 Spondylosis without myelopathy or radiculopathy, cervical region; K31.84 Gastroparesis; E78.00 Pure hypercholesterolemia, unspecified; I10 Essential (primary) hypertension; Z90.3 Acquired absence of stomach [part of]; Z86.2 Personal history of diseases of the blood and blood-forming organs and certain disorders involving the immune mechanism; Z98.1 Arthrodesis status; Z90.710 Acquired absence of both cervix and uterus; Z90.49 Acquired absence of other specified parts of digestive tract; Z79.899 Other long term (current) drug therapy
CPT/HCPCS: 70553; 99285; 96361 ×2; 70450; 96365; 96375 ×2; 80061; 81001; 83036; 84443; 82550; 80076; 83735 ×2; 84484; 80048; 80305; 85025 ×2; 85610; 85730; 85651; 87086; 86140; 36415 ×2; 72125; 70496; 70498; 72141; 93005; 84145; 97161; 96366; 97116; 80053; J1885; G0378; J2270; J0696 ×2; J3411; J2470; Q9967; A9575; 96374